=== PATIENT | female | born 1955 | race American Indian/Alaskan Native ===

== ENCOUNTER 2017-08-15 19:48 | Inpatient (IN) | payer MEDICARE ==
--- NOTE | 2017-08-15 21:23 | Emergency Department Report ---
HPI - General Chief Complaint: Weakness Time Seen by Provider: 08/15/17 21:05 - HPI HPI: Room 3 The patient is a 62-year-old female presenting with a chief complaint of altered mental status. The majority of the history is obtained from nursing staff at the longterm as the patient is a very poor historian. Nursing staff reports this patient normally ambulates with a walker because sometimes she is unsteady on her feet. The patient has been instructed to notify nursing staff whenever she wants to go somewhere and so they can assist her with ambulation. Yesterday the patient did not notify nursing and reportedly fell in the bathroom. Nursing states there is no loss of consciousness and the patient denies striking her head. Today the patient fell again while going to the bathroom and she slipped floor. Nursing staff noted that the patient couldn 't hold her food and spilled drinks. Patient had difficulty sitting up and appeared near syncopal. At baseline patient is a and O 4 Location: Mental state Duration: [See above] Quality: Altered Severity: [See above] Modifying factors: [see above] Context: [see above] Mode of transportation: [not driving] ED Past Medical Hx - Past Medical History Previous Medical History?: Yes Hx Hypertension: Yes Hx Congestive Heart Failure: Yes Hx Diabetes: Yes Hx Renal Disease: Yes Hx COPD: Yes Additional medical history: CKD, Glaucoma, acute respiratory failure - Surgical History Past Surgical History?: No - Family History Family history: no significant - Social History Smoking Status: Unknown if ever smoked Substance Use Type: None - Medications Home Medications: Home Medications Medication Instructions Recorded Confirmed Last Taken Type Albuterol Sulfate 108 mcg INHALATION Q6HR PRN 07/26/17 08/15/17 Unknown History DUONEB *Not for PRN Use* 3 ml INHALATION Q6H PRN 07/26/17 08/15/17 Unknown History Dorzolamide HCl/Timolol Maleat 1 drop OU QPM 07/26/17 08/15/17 1 Day Ago History ~07/25/17 Ergocalciferol [Vitamin D2] 50,000 unit PO QWEEK 07/26/17 08/15/17 Unknown History FLUoxetine [PROzac] 20 mg PO QDAY 07/26/17 08/15/17 Unknown History Ferrous Sulfate [Feosol 325 MG tab] 1 tab PO QDAY 07/26/17 08/15/17 Unknown History Metoprolol Xl [Metoprolol 1 tab PO QDAY 07/26/17 08/15/17 Unknown History SUCCINATE ER TAB] Chlorothiazide [Diuril] 500 mg PO Q12H #60 tablet 07/31/17 08/15/17 Unknown Rx Famotidine [Pepcid] 20 mg PO DAILY #30 tablet 07/31/17 08/15/17 Unknown Rx Insulin Glargine [Lantus VIAL] 15 units SUB-Q QHS #30 units 07/31/17 08/15/17 Unknown Rx hydrALAZINE [Apresoline TAB] 50 mg PO TID #90 tablet 07/31/17 08/15/17 Unknown Rx Aspirin [Aspir-Low] 1 tab PO QDAY #30 tablet. 08/05/17 08/15/17 Unknown Rx Ipratropium/Albuterol Sulfate 1 ampul IH TIDRT ampul.severino 08/05/17 08/15/17 Unknown Rx [DUONEB *Not for PRN Use*] Lispro Insulin [Humalog] 0 unit SUB-Q ACHS units 08/05/17 08/15/17 Unknown Rx oxyCODONE /ACETAMINOPHEN [Percocet 1 tab PO Q6H PRN #10 tablet 08/05/17 Unknown Rx 5/325 mg] ED Review of Systems ROS: Stated complaint: AMS Other details as noted in HPI Comment: Unobtainable due to pts medical conditions Physical Exam - Physical Exam Vital Signs: Vital Signs 08/15/17 20:25 Temperature 98.6 F Pulse Rate 61 Respiratory 16 Rate Blood Pressure 143/60 Blood Pressure 143/60 [Right] O2 Sat by Pulse 100 Oximetry Physical Exam: GENERAL: The patient is well-developed well-nourished female lying on stretcher requiring some effort to awaken and answer questions. [] HEENT: Normocephalic. Atraumatic. NECK: Trachea midline CHEST/LUNGS: Clear to auscultation. There is no respiratory distress noted. HEART/CARDIOVASCULAR: Regular. There is no tachycardia. There is no gallop rub or murmur. ABDOMEN: Abdomen is soft, nontender. Patient has normal bowel sounds. There is no abdominal distention. SKIN: There is no rash. There is no edema. There is no diaphoresis. NEURO: The patient is asleep but awakens with tactile and verbal stimuli. The patient is oriented to place and year but requires frequent stimuli to get the patient to answer questions. The patient is not cooperative with neurologic exam. The patient has normal speech MUSCULOSKELETAL: There is no evidence of acute injury. ED Course Vital Signs 08/15/17 20:25 Temperature 98.6 F Pulse Rate 61 Respiratory 16 Rate Blood Pressure 143/60 Blood Pressure 143/60 [Right] O2 Sat by Pulse 100 Oximetry ED Medical Decision Making - Lab Data Result diagrams: 08/15/17 21:28 08/15/17 21:28 Laboratory Tests 08/15/17 08/15/17 08/15/17 21:28 21:28 21:28 WBC 5.0 RBC 3.33 L Hgb 9.0 L Hct 30.2 L MCV 91 MCH 27 L MCHC 30 RDW 18.0 H Plt Count 372 Lymph % (Auto) 22.8 [place] % (Auto) 11.0 H Eos % (Auto) 3.4 Baso % (Auto) 1.1 Lymph # 1.1 L [place] # 0.5 Eos # 0.2 Baso # 0.1 Seg Neutrophils % 61.7 Seg Neutrophils # 3.1 PT 11.8 L INR 0.83 L APTT 25.8 Sodium 144 Potassium 4.6 Chloride 100.6 Carbon Dioxide 36 H Anion Gap 12 BUN 51 H Creatinine 2.6 H Estimated GFR 23 BUN/Creatinine Ratio 20 Glucose 117 H Calcium 8.6 Total Bilirubin < 0.20 AST 11 ALT 18 Alkaline Phosphatase 109 Ammonia Total Creatine Kinase 101 CK-MB (CK-2) 2.3 CK-MB (CK-2) Rel Index 2.2 Troponin T 0.044 H NT-Pro-B Natriuret Pep 5031 H Total Protein 5.4 L Albumin 3.0 L Albumin/Globulin Ratio 1.3 Triglycerides 143 Cholesterol 272 H LDL Cholesterol Direct 167 H HDL Cholesterol 102 H Cholesterol/HDL Ratio 2.66 TSH Free T4 Plasma/Serum Alcohol 08/15/17 08/15/17 08/15/17 21:28 21:37 21:37 WBC RBC Hgb Hct MCV MCH MCHC RDW Plt Count Lymph % (Auto) [place] % (Auto) Eos % (Auto) Baso % (Auto) Lymph # [place] # Eos # Baso # Seg Neutrophils % Seg Neutrophils # PT INR APTT Sodium Potassium Chloride Carbon Dioxide Anion Gap BUN Creatinine Estimated GFR BUN/Creatinine Ratio Glucose Calcium Total Bilirubin AST ALT Alkaline Phosphatase Ammonia 27.0 Total Creatine Kinase CK-MB (CK-2) CK-MB (CK-2) Rel Index Troponin T NT-Pro-B Natriuret Pep Total Protein Albumin Albumin/Globulin Ratio Triglycerides Cholesterol LDL Cholesterol Direct HDL Cholesterol Cholesterol/HDL Ratio TSH 2.910 Free T4 1.09 Plasma/Serum Alcohol < 0.01 - EKG Data -: EKG Interpreted by Me EKG shows normal: sinus rhythm Rate: normal - EKG Data When compared to previous EKG there are: no significant change Interpretation: unchanged when compared t (no significant change when compared to previous EKG dated 07/26/2017) - Radiology Data Radiology results: report reviewed (CT head), image reviewed (CT head) CT head (read by radiologist)-normal study of the brain. Mild left mastoiditis - Medical Decision Making Patient had a myocardial perfusion scan performed last month that was read as low risk - Differential Diagnosis altered mental status, ICH, electrolyte imbalance, Critical care attestation.: If time is entered above; I have spent that time in minutes in the direct care of this critically ill patient, excluding procedure time. ED Disposition Clinical Impression: Altered mental status, Renal insufficiency Disposition: -09 OP ADMIT IP TO THIS HOSP Is pt being admited?: Yes Does the pt Need Aspirin: No (renal insufficiency) Condition: Stable Referrals: CANDIE UGALDE MD [Primary Care Provider] - 3-5 Days Time of Disposition: 23:18 (hospitalist paged (Dr Kavitha Carroll))
[2017-08-15 21:51] LABS: Basophils # (Auto) 0.1 K/mm3 (0.0-0.1); Basophils % (Auto) 1.1 % (0.0-1.8); Eosinophils # (Auto) 0.2 K/mm3 (0.0-0.4); Eosinophils % (Auto) 3.4 % (0.0-4.3); Lymphocytes # (Auto) 1.1 K/mm3 (1.2-5.4); Lymphocytes % (Auto) 22.8 % (13.4-35.0); Mean Corpuscular HGB Conc 30 % (30-34); Mean Corpuscular Hemoglobin 27 pg (28-32); Mean Corpuscular Volume 91 fl (79-97); Monocytes # (Auto) 0.5 K/mm3 (0.0-0.8); Platelet Count 372 K/mm3 (140-440); Red Blood Count 3.33 M/mm3 (3.65-5.03)
[2017-08-15 21:52] LABS: Hematocrit 30.2 % (30.3-42.9)
[2017-08-15 22:00] LABS: INR 0.83 (0.87-1.13)
[2017-08-15 22:01] LABS: Partial Thromboplastin Time 25.8 Sec. (24.2-36.6)
[2017-08-15 22:09] LABS: Creatine Kinase MB 2.3 ng/mL (0.0-4.0)
[2017-08-15 22:13] LABS: Alanine Aminotransferase 18 units/L (7-56); BUN/Creatinine Ratio 20; Blood Urea Nitrogen 51 mg/dL (7-17); Calcium 8.6 mg/dL (8.4-10.2); Hemolysis Index 2
[2017-08-15 22:19] LABS: Free T4 (Free Thyroxine) 1.09 ng/dL (0.76-1.46)
[2017-08-15 22:24] LABS: Chol/HDL Ratio 2.66 %; HDL Cholesterol 102 mg/dL (40-59); LDL Cholesterol,Direct 167 mg/dL (50-130)
[2017-08-15] MEDS ORDERED: PLAVIX PO ONE (23:13)
[2017-08-16 00:11] LABS: Amorphous Crystals,Urine 2+; Bilirubin,Urine NEG (Negative); Blood,Urine NEG (Negative); Color,Urine Yellow (Yellow); Hyaline Casts,Urine 3 /LPF; Mucus,Urine FEW /HPF; Urobilinogen,Urine < 2.0 mg/dL (<2.0)
[2017-08-16 00:15] LABS: Protein,Urine >500 mg/dL (Negative)
[2017-08-16 00:16] LABS: Amphetamine Screen,Urine PRESUMPTIVE NEGATIVE; Benzodiazepines Screen,Urine PRESUMPTIVE NEGATIVE; Cannabinoid Screen,Urine PRESUMPTIVE NEGATIVE; Cocaine Screen,Urine PRESUMPTIVE NEGATIVE; Methadone Screen,Urine PRESUMPTIVE NEGATIVE; Opiate Screen,Urine PRESUMPTIVE NEGATIVE
[2017-08-16] MEDS ORDERED: D50W (25GM) Syringe IV PRN (02:22)
[2017-08-16] MEDS ORDERED: SODIUM CHLORIDE FLUSH SYRINGE 10 ML IV PRN (02:22)
[2017-08-16] MEDS ORDERED: TYLENOL PO PRN (02:22)
[2017-08-16] MEDS ORDERED: DUONEB *Not for PRN Use IH ONE (02:30)
--- NOTE | 2017-08-16 02:30 | History and Physical Report ---
History of Present Illness Date of examination: 08/16/17 History of present illness: 62-year-old male with a history of CHF, COPD, chronic kidney disease, hypertension, diabetes, sleep apnea, coronary artery disease was just discharged from the hospital return today for altered mental status. The patient is unable to give a history, she is lethargic but arousable. ABG was done which shows CO2 of 94, the patient was placed on BiPAP. Review of system is unobtainable PAST MEDICAL HISTORY:CHF, COPD, chronic kidney disease, hypertension, diabetes, sleep apnea, coronary artery disease PAST SURGICAL HISTORY: Unknown SOCIAL HISTORY: Unknown FAMILY HISTORY: Unknown Medications and Allergies Allergies Allergy/AdvReac Type Severity Reaction Status Date / Time No Known Allergies Allergy Verified 07/26/17 09:25 Home Medications Medication Instructions Recorded Confirmed Last Taken Type Albuterol Sulfate 108 mcg INHALATION Q6HR PRN 07/26/17 08/15/17 Unknown History DUONEB *Not for PRN Use* 3 ml INHALATION Q6H PRN 07/26/17 08/15/17 Unknown History Dorzolamide HCl/Timolol Maleat 1 drop OU QPM 07/26/17 08/15/17 1 Day Ago History ~07/25/17 Ergocalciferol [Vitamin D2] 50,000 unit PO QWEEK 07/26/17 08/15/17 Unknown History FLUoxetine [PROzac] 20 mg PO QDAY 07/26/17 08/15/17 Unknown History Ferrous Sulfate [Feosol 325 MG tab] 1 tab PO QDAY 07/26/17 08/15/17 Unknown History Metoprolol Xl [Metoprolol 1 tab PO QDAY 07/26/17 08/15/17 Unknown History SUCCINATE ER TAB] Chlorothiazide [Diuril] 500 mg PO Q12H #60 tablet 07/31/17 08/15/17 Unknown Rx Famotidine [Pepcid] 20 mg PO DAILY #30 tablet 07/31/17 08/15/17 Unknown Rx Insulin Glargine [Lantus VIAL] 15 units SUB-Q QHS #30 units 07/31/17 08/15/17 Unknown Rx hydrALAZINE [Apresoline TAB] 50 mg PO TID #90 tablet 07/31/17 08/15/17 Unknown Rx Aspirin [Aspir-Low] 1 tab PO QDAY #30 tablet.dr 08/05/17 08/15/17 Unknown Rx Ipratropium/Albuterol Sulfate 1 ampul IH TIDRT ampul.severino 08/05/17 08/15/17 Unknown Rx [DUONEB *Not for PRN Use*] Lispro Insulin [Humalog] 0 unit SUB-Q ACHS units 08/05/17 08/15/17 Unknown Rx oxyCODONE /ACETAMINOPHEN [Percocet 1 tab PO Q6H PRN #10 tablet 08/05/17 Unknown Rx 5/325 mg] Exam - Physical Exam Narrative exam: Gen. appearance: Patient lying in bed, no apparent distress on BiPAP HEENT: Normocephalic, atraumatic, pupils equally round and reactive to light, unable to do extraocular movement, and no sclericterus,. No JVD or thyromegaly or nodule,neck supple, no carotid bruit ,mucous membranes moist, unable to examine oral cavity Heart: S1, S2, regular rate and rhythm Lungs: Clear to auscultation bilaterally, breathing comfortable Abdomen: Positive bowel sounds, soft, nondistended, no organomegaly Extremity: No edema, cyanosis, clubbing Skin: No rash, nodules, warm, dry Neuro: Lethargic - Constitutional Vitals: Temp Pulse Resp BP Pulse Ox 98.6 F 63 11 L 162/64 100 08/15/17 20:25 08/16/17 02:01 08/16/17 02:01 08/16/17 02:01 08/16/17 02:01 Results - Labs CBC & Chem 7: 08/15/17 21:28 08/15/17 21:28 Labs: Abnormal lab results 08/15/17 08/15/17 08/15/17 Range/Units 21:28 21:28 21:28 RBC 3.33 L (3.65-5.03) M/mm3 Hgb 9.0 L (10.1-14.3) gm/dl Hct 30.2 L (30.3-42.9) % MCH 27 L (28-32) pg RDW 18.0 H (13.2-15.2) % [place] % (Auto) 11.0 H (0.0-7.3) % Lymph # 1.1 L (1.2-5.4) K/mm3 PT 11.8 L (12.2-14.9) Sec. INR 0.83 L (0.87-1.13) POC ABG pH (7.35-7.45) POC ABG pCO2 (35-45) POC ABG pO2 (80-105) Carbon Dioxide 36 H (22-30) mmol/L BUN 51 H (7-17) mg/dL Creatinine 2.6 H (0.7-1.2) mg/dL Glucose 117 H (65-100) mg/dL Troponin T 0.044 H (0.00-0.029) ng/mL NT-Pro-B Natriuret Pep 5031 H (0-900) pg/mL Total Protein 5.4 L (6.3-8.2) g/dL Albumin 3.0 L (3.9-5) g/dL Cholesterol 272 H (50-199) mg/dL LDL Cholesterol Direct 167 H (50-130) mg/dL HDL Cholesterol 102 H (40-59) mg/dL 08/16/17 08/16/17 Range/Units 00:44 01:55 RBC (3.65-5.03) M/mm3 Hgb (10.1-14.3) gm/dl Hct (30.3-42.9) % MCH (28-32) pg RDW (13.2-15.2) % [place] % (Auto) (0.0-7.3) % Lymph # (1.2-5.4) K/mm3 PT (12.2-14.9) Sec. INR (0.87-1.13) POC ABG pH 7.184 L 7.291 L (7.35-7.45) POC ABG pCO2 94.6 H 70.2 H (35-45) POC ABG pO2 163 H 63 L (80-105) Carbon Dioxide (22-30) mmol/L BUN (7-17) mg/dL Creatinine (0.7-1.2) mg/dL Glucose (65-100) mg/dL Troponin T (0.00-0.029) ng/mL NT-Pro-B Natriuret Pep (0-900) pg/mL Total Protein (6.3-8.2) g/dL Albumin (3.9-5) g/dL Cholesterol (50-199) mg/dL LDL Cholesterol Direct (50-130) mg/dL HDL Cholesterol (40-59) mg/dL - Imaging and Cardiology EKG: image reviewed CT Scan - head: report reviewed Assessment and Plan Assessment Acute respiratory failure, hypercarbic COPD exacerbation CHF, sta chronic kidney disease Hypertension Diabetes sleep apnea Coronary artery disease Plan Admit to medicine Start high-dose steroids, first dose now, nebulizer treatments Repeat ABG, continue BiPAP Consult pulmonary, check fingersticks, oriented enzymes, initiate insulin sliding scale Obtain chest x-ray DVT prophylaxis
[2017-08-16] MEDS: DUONEB *Not for PRN Use IH SCH ×4 (02:44→20:02)
[2017-08-16 04:12] LABS: Creatine Kinase MB 2.6 ng/mL (0.0-4.0)
[2017-08-16] MEDS: HumuLIN R SUB-Q SCH ×4 (07:30→22:13)
[2017-08-16] MEDS: LOVENOX SUB-Q SCH (11:13)
[2017-08-16] MEDS: SODIUM CHLORIDE FLUSH SYRINGE 10 ML IV SCH ×2 (11:14→22:08)
[2017-08-16] MEDS ORDERED: ALBUTEROL SULFATE 108 MCG INHALATION PRN (12:09)
[2017-08-16 12:14] LABS: Creatine Kinase MB 1.6 ng/mL (0.0-4.0)
[2017-08-16] MEDS ORDERED: CHLOROTHIAZIDE 500 MG PO SCH ×2 (12:15→22:00)
[2017-08-16] MEDS ORDERED: PROVENTIL IH PRN (12:30)
[2017-08-16] MEDS: APRESOLINE PO SCH ×2 (17:58→22:06)
--- NOTE | 2017-08-16 19:13 | Progress Note ---
Assessment and Plan Assessment and plan: --Acute hypoxic respiratory failure: Oxygen titrate O2 sats to more than 90%, nebulizers, IV steroids, IV antibiotics BiPAP as needed --COPD exacerbation; Oxygen nebulizers and IV steroids and antibiotics inhalation steroids Evaluation for home oxygen at discharge --Acute on chronic diastolic congestive heart failure Ejection fraction 50-55%, continue anti-failure medications Low sodium diet, closely monitor --Acute on chronic kidney disease stage III Gentle hydration closely monitor renal function and avoid nephrotoxins Nephrology consult --Type 2 diabetes mellitus; uncontrolled Secondary to IV steroids, Accu-Chek sliding scale coverage and ADA diet and insulin Closely monitor blood sugars, adjust insulin dose as needed --Hypertension; moderate control, continue current antihypertensives When necessary medications --DVT prophylaxis; Lovenox Will closely monitor the patient and adjust management as needed Plan of care is reviewed with the patient and her nurse History Interval history: Patient seen and examined medical records reviewed Feels better no new complaints Patient is alert awake oriented 3 Not in acute distress Vital signs reviewed Hospitalist Physical - Constitutional Vitals: Temp Pulse Resp BP Pulse Ox 97.9 F 67 20 144/46 100 08/16/17 08:54 08/16/17 17:58 08/16/17 14:30 08/16/17 17:58 08/16/17 12:20 General appearance: Present: no acute distress, well-nourished - EENT Eyes: Present: PERRL, EOM intact - Neck Neck: Present: supple, normal ROM - Respiratory Respiratory effort: normal Respiratory: bilateral: diminished, wheezing, negative: rales, rhonchi - Cardiovascular Rhythm: regular Heart Sounds: Present: S1 & S2 - Extremities Extremities: no ischemia, No edema - Abdominal General gastrointestinal: soft, non-tender, non-distended, normal bowel sounds - Integumentary Integumentary: Present: clear, warm - Psychiatric Psychiatric: appropriate mood/affect, cooperative - Neurologic Neurologic: CNII-XII intact, moves all extremities Results - Labs CBC & Chem 7: 08/17/17 15:02 08/17/17 15:02 Labs: Laboratory Last Values WBC 5.0 K/mm3 (4.5-11.0) 08/15/17 21:28 RBC 3.33 M/mm3 (3.65-5.03) L 08/15/17 21:28 Hgb 9.0 gm/dl (10.1-14.3) L 08/15/17 21:28 Hct 30.2 % (30.3-42.9) L 08/15/17 21: MCV 91 fl (79-97) 08/15/17 21:28 MCH 27 pg (28-32) L 08/15/17 21: MCHC 30 % (30-34) 08/15/17 21:28 RDW 18.0 % (13.2-15.2) H 08/15/17 21:28 Plt Count 372 K/mm3 (140-440) 08/15/17 21:28 Lymph % (Auto) 22.8 % (13.4-35.0) 08/15/17 21:28 [place] % (Auto) 11.0 % (0.0-7.3) H 08/15/17 21: Eos % (Auto) 3.4 % (0.0-4.3) 08/15/17 21: Baso % (Auto) 1.1 % (0.0-1.8) 08/15/17 21:28 Lymph # 1.1 K/mm3 (1.2-5.4) L 08/15/17 21:28 [place] # 0.5 K/mm3 (0.0-0.8) 08/15/17 21:28 Eos # 0.2 K/mm3 (0.0-0.4) 08/15/17 21:28 Baso # 0.1 K/mm3 (0.0-0.1) 08/15/17 21:28 Seg Neutrophils % 61.7 % (40.0-70.0) 08/15/17 21: Seg Neutrophils # 3.1 K/mm3 (1.8-7.7) 08/15/17 21:28 PT 11.8 Sec. (12.2-14.9) L 08/15/17 21: INR 0.83 (0.87-1.13) L 08/15/17 21:28 APTT 25.8 Sec. (24.2-36.6) 08/15/17 21:28 POC ABG pH 7.291 (7.35-7.45) L 08/16/17 08:47 POC ABG pCO2 71.6 (35-45) H 08/16/17 08:47 POC ABG pO2 235 (80-105) H 08/16/17 08:47 POC ABG HCO3 34.4 08/16/17 08:47 POC ABG Total CO2 37 08/16/17 08:47 POC ABG O2 Sat 100 08/16/17 08:47 POC ABG Base Excess 8 08/16/17 08:47 FiO2 40 % 08/16/17 08:47 Sodium 144 mmol/L (137-145) 08/15/17 21:28 Potassium 4.6 mmol/L (3.6-5.0) 08/15/17 21:28 Chloride 100.6 mmol/L (98-107) 08/15/17 21:28 Carbon Dioxide 36 mmol/L (22-30) H 08/15/17 21:28 Anion Gap 12 mmol/L 08/15/17 21:28 BUN 51 mg/dL (7-17) H 08/15/17 21:28 Creatinine 2.6 mg/dL (0.7-1.2) H 08/15/17 21:28 Estimated GFR 23 ml/min 08/15/17 21:28 BUN/Creatinine Ratio 20 % 08/15/17 21:28 Glucose 117 mg/dL (65-100) H 08/15/17 21:28 POC Glucose 249 (70-105) H 08/16/17 16:56 Calcium 8.6 mg/dL (8.4-10.2) 08/15/17 21:28 Total Bilirubin < 0.20 mg/dL (0.1-1.2) 08/15/17 21:28 AST 11 units/L (5-40) 08/15/17 21:28 ALT 18 units/L (7-56) 08/15/17 21:28 Alkaline Phosphatase 109 units/L (35-129) 08/15/17 21:28 Ammonia 27.0 umol/L (25-60) 08/15/17 21:28 Total Creatine Kinase 59 units/L (30-135) 08/16/17 11:01 CK-MB (CK-2) 1.6 ng/mL (0.0-4.0) 08/16/17 11:01 CK-MB (CK-2) Rel Index 2.7 (0-4) 08/16/17 11:01 Troponin T 0.032 ng/mL (0.00-0.029) H D 08/16/17 11:01 NT-Pro-B Natriuret Pep 5031 pg/mL (0-900) H 08/15/17 21:28 Total Protein 5.4 g/dL (6.3-8.2) L 08/15/17 21:28 Albumin 3.0 g/dL (3.9-5) L 08/15/17 21: Albumin/Globulin Ratio 1.3 % 08/15/17 21:28 Triglycerides 143 mg/dL (2-149) 08/15/17 21:28 Cholesterol 272 mg/dL (50-199) H 08/15/17 21: LDL Cholesterol Direct 167 mg/dL (50-130) H 08/15/17 21: HDL Cholesterol 102 mg/dL (40-59) H 08/15/17 21: Cholesterol/HDL Ratio 2.66 % 08/15/17 21:28 TSH 2.910 mlU/mL (0.270-4.200) 08/15/17 21:37 Free T4 1.09 ng/dL (0.76-1.46) 08/15/17 21:37 Urine Color Yellow (Yellow) 08/15/17 23:44 Urine Turbidity Clear (Clear) 08/15/17 23:44 Urine pH 6.0 (5.0-7.0) 08/15/17 23:44 Ur Specific [place] 1.011 (1.003-1.030) 08/15/17 23:44 Urine Protein >500 mg/dL (Negative) 08/15/17 23:44 Urine Glucose (UA) >=500 mg/dL (Negative) 08/15/17 23:44 Urine Ketones Neg mg/dL (Negative) 08/15/17 23:44 Urine Blood Neg (Negative) 08/15/17 23:44 Urine Nitrite Neg (Negative) 08/15/17 23:44 Urine Bilirubin Neg (Negative) 08/15/17 23:44 Urine Urobilinogen < 2.0 mg/dL (<2.0) 08/15/17 23:44 Ur Leukocyte Esterase Neg (Negative) 08/15/17 23:44 Urine WBC (Auto) 2.0 /HPF (0.0-6.0) 08/15/17 23:44 Urine RBC (Auto) 1.0 /HPF (0.0-6.0) 08/15/17 23:44 U Epithel Cells (Auto) < 1.0 /HPF (0-13.0) 08/15/17 23:44 Amorphous Crystals 2+ 08/15/17 23:44 Hyaline Casts 3 /LPF 08/15/17 23:44 Urine Mucus Few /HPF 08/15/17 23:44 Urine Opiates Screen Presumptive negative 08/15/17 23:44 Urine Methadone Screen Presumptive negative 08/15/17 23:44 Ur Barbiturates Screen Presumptive negative 08/15/17 23:44 Ur Phencyclidine Scrn Presumptive negative 08/15/17 23:44 Ur Amphetamines Screen Presumptive negative 08/15/17 23:44 U Benzodiazepines Scrn Presumptive negative 08/15/17 23:44 Urine Cocaine Screen Presumptive negative 08/15/17 23:44 U Marijuana (THC) Screen Presumptive negative 08/15/17 23:44 Drugs of Abuse Note Disclamer 08/15/17 23:44 Plasma/Serum Alcohol < 0.01 % (0-0.07) 08/15/17 21:37
[2017-08-16] MEDS ORDERED: LANTUS SUB-Q SCH (22:00)
[2017-08-17] MEDS: DUONEB *Not for PRN Use IH SCH ×3 (07:55→21:00)
--- NOTE | 2017-08-17 10:57 | Progress Note ---
Assessment and Plan Assessment and plan: --Acute hypoxic respiratory failure: Symptoms slightly improved Oxygen titrate O2 sats to more than 90%, nebulizers, IV steroids, IV antibiotics BiPAP as needed --COPD exacerbation; Oxygen nebulizers and IV steroids and antibiotics inhalation steroids Evaluation for home oxygen at discharge --Acute on chronic diastolic congestive heart failure Ejection fraction 50-55%, continue anti-failure medications Low sodium diet, closely monitor --Acute on chronic kidney disease stage III Gentle hydration closely monitor renal function and avoid nephrotoxins Nephrology consult --Type 2 diabetes mellitus; uncontrolled Secondary to IV steroids, Accu-Chek sliding scale coverage and ADA diet and insulin Closely monitor blood sugars, adjust insulin dose as needed --Hypertension; moderate control, continue current antihypertensives When necessary medications --DVT prophylaxis; Lovenox Will closely monitor the patient and adjust management as needed Plan of care is reviewed with the patient and her nurse History Interval history: Patient seen and examined medical records reviewed Patient feels slightly better no new complaints Blood sugars are uncontrolled secondary to IV steroids Vital signs reviewed Hospitalist Physical - Constitutional Vitals: Temp Pulse Resp BP Pulse Ox 97.4 F L 65 20 186/73 99 08/17/17 08:50 08/17/17 08:50 08/17/17 08:50 08/17/17 08:50 08/17/17 10:00 General appearance: Present: no acute distress, well-nourished - EENT Eyes: Present: PERRL, EOM intact - Neck Neck: Present: supple, normal ROM - Respiratory Respiratory effort: normal Respiratory: bilateral: diminished, wheezing, negative: rales, rhonchi - Cardiovascular Rhythm: regular Heart Sounds: Present: S1 & S2 - Extremities Extremities: no ischemia, No edema - Abdominal General gastrointestinal: soft, non-tender, non-distended, normal bowel sounds - Integumentary Integumentary: Present: clear, warm - Psychiatric Psychiatric: appropriate mood/affect, cooperative - Neurologic Neurologic: CNII-XII intact, moves all extremities Results - Labs CBC & Chem 7: 08/17/17 15:02 08/17/17 15:02 Labs: Laboratory Last Values WBC 5.0 K/mm3 (4.5-11.0) 08/15/17 21:28 RBC 3.33 M/mm3 (3.65-5.03) L 08/15/17 21:28 Hgb 9.0 gm/dl (10.1-14.3) L 08/15/17 21: Hct 30.2 % (30.3-42.9) L 08/15/17 21: MCV 91 fl (79-97) 08/15/17 21: MCH 27 pg (28-32) L 08/15/17 21: MCHC 30 % (30-34) 08/15/17 21: RDW 18.0 % (13.2-15.2) H 08/15/17 21: Plt Count 372 K/mm3 (140-440) 08/15/17 21: Lymph % (Auto) 22.8 % (13.4-35.0) 08/15/17: [place] % (Auto) 11.0 % (0.0-7.3) H 08/15/17 21: Eos % (Auto) 3.4 % (0.0-4.3) 08/15/17: Baso % (Auto) 1.1 % (0.0-1.8) 08/15/17: Lymph # 1.1 K/mm3 (1.2-5.4) L 08/15/17 21: [place] # 0.5 K/mm3 (0.0-0.8) 08/15/17 21: Eos # 0.2 K/mm3 (0.0-0.4) 08/15/17 21: Baso # 0.1 K/mm3 (0.0-0.1) 08/15/17 21: Seg Neutrophils % 61.7 % (40.0-70.0) 08/15/17 21: Seg Neutrophils # 3.1 K/mm3 (1.8-7.7) 08/15/17 21: PT 11.8 Sec. (12.2-14.9) L 08/15/17: INR 0.83 (0.87-1.13) L 08/15/17 21: APTT 25.8 Sec. (24.2-36.6) 08/15/17 21: POC ABG pH 7.291 (7.35-7.45) L 08/16/17 08:47 POC ABG pCO2 71.6 (35-45) H 08/16/17 08:47 POC ABG pO2 235 (80-105) H 08/16/17 08:47 POC ABG HCO3 34.4 08/16/17 08:47 POC ABG Total CO2 37 08/16/17 08:47 POC ABG O2 Sat 100 08/16/17 08:47 POC ABG Base Excess 8 08/16/17 08:47 FiO2 40 % 08/16/17 08:47 Sodium 144 mmol/L (137-145) 08/15/17 21:28 Potassium 4.6 mmol/L (3.6-5.0) 08/15/17 21:28 Chloride 100.6 mmol/L (98-107) 08/15/17 21:28 Carbon Dioxide 36 mmol/L (22-30) H 08/15/17 21:28 Anion Gap 12 mmol/L 08/15/17 21:28 BUN 51 mg/dL (7-17) H 08/15/17 21:28 Creatinine 2.6 mg/dL (0.7-1.2) H 08/15/17 21:28 Estimated GFR 23 ml/min 08/15/17 21:28 BUN/Creatinine Ratio 20 % 08/15/17 21:28 Glucose 117 mg/dL (65-100) H 08/15/17 21:28 POC Glucose 328 (70-105) H 08/17/17 06:32 Calcium 8.6 mg/dL (8.4-10.2) 08/15/17 21:28 Total Bilirubin < 0.20 mg/dL (0.1-1.2) 08/15/17 21:28 AST 11 units/L (5-40) 08/15/17 21:28 ALT 18 units/L (7-56) 08/15/17 21:28 Alkaline Phosphatase 109 units/L (35-129) 08/15/17 21:28 Ammonia 27.0 umol/L (25-60) 08/15/17 21:28 Total Creatine Kinase 59 units/L (30-135) 08/16/17 11:01 CK-MB (CK-2) 1.6 ng/mL (0.0-4.0) 08/16/17 11:01 CK-MB (CK-2) Rel Index 2.7 (0-4) 08/16/17 11:01 Troponin T 0.032 ng/mL (0.00-0.029) H D 08/16/17 11:01 NT-Pro-B Natriuret Pep 5031 pg/mL (0-900) H 08/15/17 21:28 Total Protein 5.4 g/dL (6.3-8.2) L 08/15/17 21:28 Albumin 3.0 g/dL (3.9-5) L 08/15/17 21: Albumin/Globulin Ratio 1.3 % 08/15/17 21:28 Triglycerides 143 mg/dL (2-149) 08/15/17 21: Cholesterol 272 mg/dL (50-199) H 08/15/17 21: LDL Cholesterol Direct 167 mg/dL (50-130) H 08/15/17 21: HDL Cholesterol 102 mg/dL (40-59) H 08/15/17 21: Cholesterol/HDL Ratio 2.66 % 08/15/17 21:28 TSH 2.910 mlU/mL (0.270-4.200) 08/15/17 21:37 Free T4 1.09 ng/dL (0.76-1.46) 08/15/17 21:37 Urine Color Yellow (Yellow) 08/15/17 23:44 Urine Turbidity Clear (Clear) 08/15/17 23:44 Urine pH 6.0 (5.0-7.0) 08/15/17 23:44 Ur Specific [place] 1.011 (1.003-1.030) 08/15/17 23:44 Urine Protein >500 mg/dL (Negative) 08/15/17 23:44 Urine Glucose (UA) >=500 mg/dL (Negative) 08/15/17 23:44 Urine Ketones Neg mg/dL (Negative) 08/15/17 23:44 Urine Blood Neg (Negative) 08/15/17 23:44 Urine Nitrite Neg (Negative) 08/15/17 23:44 Urine Bilirubin Neg (Negative) 08/15/17 23:44 Urine Urobilinogen < 2.0 mg/dL (<2.0) 08/15/17 23:44 Ur Leukocyte Esterase Neg (Negative) 08/15/17 23:44 Urine WBC (Auto) 2.0 /HPF (0.0-6.0) 08/15/17 23:44 Urine RBC (Auto) 1.0 /HPF (0.0-6.0) 08/15/17 23:44 U Epithel Cells (Auto) < 1.0 /HPF (0-13.0) 08/15/17 23:44 Amorphous Crystals 2+ 08/15/17 23:44 Hyaline Casts 3 /LPF 08/15/17 23:44 Urine Mucus Few /HPF 08/15/17 23:44 Urine Opiates Screen Presumptive negative 08/15/17 23:44 Urine Methadone Screen Presumptive negative 08/15/17 23:44 Ur Barbiturates Screen Presumptive negative 08/15/17 23:44 Ur Phencyclidine Scrn Presumptive negative 08/15/17 23:44 Ur Amphetamines Screen Presumptive negative 08/15/17 23:44 U Benzodiazepines Scrn Presumptive negative 08/15/17 23:44 Urine Cocaine Screen Presumptive negative 08/15/17 23:44 U Marijuana (THC) Screen Presumptive negative 08/15/17 23:44 Drugs of Abuse Note Disclamer 08/15/17 23:44 Plasma/Serum Alcohol < 0.01 % (0-0.07) 08/15/17 21:37
[2017-08-17] MEDS: PROzac PO SCH (11:18)
[2017-08-17] MEDS: LOVENOX SUB-Q SCH (11:18)
[2017-08-17] MEDS: HALFPRIN EC PO SCH (11:18)
[2017-08-17] MEDS: SODIUM CHLORIDE FLUSH SYRINGE 10 ML IV SCH ×2 (11:19→22:15)
[2017-08-17] MEDS: HumuLIN R SUB-Q SCH ×4 (11:19→22:15)
[2017-08-17] MEDS: TOPROL XL PO SCH (11:20)
[2017-08-17] MEDS: APRESOLINE PO SCH ×2 (11:23→22:13)
[2017-08-17] MEDS: HumaLOG SUB-Q SCH ×2 (11:43→17:26)
[2017-08-17 15:26] LABS: Basophils % (Auto) 0.2 % (0.0-1.8); Hematocrit 30.1 % (30.3-42.9); Hemoglobin 9.1 gm/dl (10.1-14.3); Lymphocytes # (Auto) 0.4 K/mm3 (1.2-5.4); Lymphocytes % (Auto) 9.6 % (13.4-35.0); Mean Corpuscular HGB Conc 30 % (30-34); Mean Corpuscular Hemoglobin 27 pg (28-32); Mean Corpuscular Volume 89 fl (79-97); Monocytes # (Auto) 0.2 K/mm3 (0.0-0.8); Monocytes % (Auto) 5.7 % (0.0-7.3); Platelet Count 420 K/mm3 (140-440); Red Blood Count 3.38 M/mm3 (3.65-5.03); Red Cell Distribution Width 17.4 % (13.2-15.2)
[2017-08-17 15:42] LABS: Calcium 8.4 mg/dL (8.4-10.2)
--- NOTE | 2017-08-17 18:11 | Event Note ---
Date: 08/17/17 Patient's blood sugars are uncontrolled, due to high-dose IV Solu-Medrol Continue Accu-Chek sliding scale coverage, insulin dose increased, Solu-Medrol dose tapered Closely monitor the patient and the blood sugars
[2017-08-17] MEDS: LANTUS SUB-Q SCH (22:14)
[2017-08-18] MEDS: HumuLIN R SUB-Q SCH ×4 (07:30→22:08)
[2017-08-18] MEDS: DUONEB *Not for PRN Use IH SCH ×3 (08:12→20:34)
[2017-08-18] MEDS: APRESOLINE PO SCH ×3 (09:08→22:08)
[2017-08-18] MEDS: TOPROL XL PO SCH (09:09)
[2017-08-18] MEDS: LOVENOX SUB-Q SCH (09:09)
[2017-08-18] MEDS: HALFPRIN EC PO SCH (09:09)
[2017-08-18] MEDS: PROzac PO SCH (09:10)
[2017-08-18] MEDS: SODIUM CHLORIDE FLUSH SYRINGE 10 ML IV SCH ×2 (09:10→22:09)
[2017-08-18 09:28] LABS: Hematocrit 28.1 % (30.3-42.9); Mean Corpuscular HGB Conc 32 % (30-34); Mean Corpuscular Hemoglobin 28 pg (28-32); Mean Corpuscular Volume 87 fl (79-97); Platelet Count 404 K/mm3 (140-440); Red Blood Count 3.23 M/mm3 (3.65-5.03); Red Cell Distribution Width 17.5 % (13.2-15.2)
[2017-08-18 09:36] LABS: Calcium 8.3 mg/dL (8.4-10.2)
--- NOTE | 2017-08-18 10:42 | Progress Note ---
Assessment and Plan Assessment and plan: --Acute on chronic kidney disease stage III Worsening renal function Gentle hydration Avoid nephrotoxins nephrology evaluation --Acute hypoxic respiratory failure: Symptoms slightly improved Oxygen titrate O2 sats to more than 90%, nebulizers, IV steroids, IV antibiotics BiPAP as needed --COPD exacerbation; Oxygen nebulizers and IV steroids and antibiotics inhalation steroids Evaluation for home oxygen at discharge --Acute on chronic diastolic congestive heart failure Ejection fraction 50-55%, continue anti-failure medications Low sodium diet, closely monitor --Type 2 diabetes mellitus; uncontrolled Secondary to IV steroids, Accu-Chek sliding scale coverage and ADA diet and insulin Closely monitor blood sugars, adjust insulin dose as needed --Hypertension; moderate control, continue current antihypertensives When necessary medications --DVT prophylaxis; Lovenox Discharge planning; will decrease it to [facility] long-term when medically stable Plan of care reviewed with the patient and her nurse Also discussed with case management History Interval history: Patient seen and examined medical records reviewed She is slightly better no new complaints Worsening renal function No new events reported Vital signs reviewed Hospitalist Physical - Constitutional Vitals: Temp Pulse Resp BP Pulse Ox 98.0 F 65 18 147/60 99 08/18/17 08:01 08/18/17 09:16 08/18/17 08:22 08/18/17 09:09 08/18/17 08:12 General appearance: Present: no acute distress, well-nourished - EENT Eyes: Present: PERRL, EOM intact - Neck Neck: Present: supple, normal ROM - Respiratory Respiratory effort: normal Respiratory: bilateral: diminished, negative: rales, rhonchi, wheezing - Cardiovascular Rhythm: regular Heart Sounds: Present: S1 & S2 - Extremities Extremities: no ischemia, No edema - Abdominal General gastrointestinal: soft, non-tender, non-distended, normal bowel sounds - Integumentary Integumentary: Present: clear, warm - Psychiatric Psychiatric: appropriate mood/affect, cooperative - Neurologic Neurologic: CNII-XII intact, moves all extremities Results - Labs CBC & Chem 7: 08/18/17 09:09 08/18/17 09:09 Labs: Laboratory Last Values WBC 6.7 K/mm3 (4.5-11.0) 08/18/17 09:09 RBC 3.23 M/mm3 (3.65-5.03) L 08/18/17 09:09 Hgb 9.0 gm/dl (10.1-14.3) L 08/18/17 09:09 Hct 28.1 % (30.3-42.9) L 08/18/17 09:09 MCV 87 fl (79-97) 08/18/17 09:09 MCH 28 pg (28-32) 08/18/17 09:09 MCHC 32 % (30-34) 08/18/17 09:09 RDW 17.5 % (13.2-15.2) H 08/18/17 09:09 Plt Count 404 K/mm3 (140-440) 08/18/17 09:09 Lymph % (Auto) 9.6 % (13.4-35.0) L 08/17/17 15:02 [place] % (Auto) 5.7 % (0.0-7.3) 08/17/17 15:02 Eos % (Auto) 0.0 % (0.0-4.3) 08/17/17 15:02 Baso % (Auto) 0.2 % (0.0-1.8) 08/17/17 15:02 Lymph # 0.4 K/mm3 (1.2-5.4) L 08/17/17 15:02 [place] # 0.2 K/mm3 (0.0-0.8) 08/17/17 15:02 Eos # 0.0 K/mm3 (0.0-0.4) 08/17/17 15:02 Baso # 0.0 K/mm3 (0.0-0.1) 08/17/17 15:02 Seg Neutrophils % [place] 08/18/17 09:09 Seg Neutrophils # 3.3 K/mm3 (1.8-7.7) 08/17/17 15:02 PT 11.8 Sec. (12.2-14.9) L 08/15/17 21:28 INR 0.83 (0.87-1.13) L 08/15/17 21:28 APTT 25.8 Sec. (24.2-36.6) 08/15/17 21:28 POC ABG pH 7.291 (7.35-7.45) L 08/16/17 08:47 POC ABG pCO2 71.6 (35-45) H 08/16/17 08:47 POC ABG pO2 235 (80-105) H 08/16/17 08:47 POC ABG HCO3 34.4 08/16/17 08:47 POC ABG Total CO2 37 08/16/17 08:47 POC ABG O2 Sat 100 08/16/17 08:47 POC ABG Base Excess 8 08/16/17 08:47 FiO2 40 % 08/16/17 08:47 Sodium 142 mmol/L (137-145) 08/18/17 09:09 Potassium 5.2 mmol/L (3.6-5.0) H 08/18/17 09:09 Chloride 100.1 mmol/L (98-107) 08/18/17 09:09 Carbon Dioxide 32 mmol/L (22-30) H 08/18/17 09:09 Anion Gap 15 mmol/L 08/18/17 09:09 BUN 69 mg/dL (7-17) H 08/18/17 09:09 Creatinine 3.2 mg/dL (0.7-1.2) H 08/18/17 09:09 Estimated GFR 18 ml/min 08/18/17 09:09 BUN/Creatinine Ratio 22 % 08/18/17 09:09 Glucose 166 mg/dL (65-100) H 08/18/17 09:09 POC Glucose 67 (70-105) L 08/18/17 06:55 Calcium 8.3 mg/dL (8.4-10.2) L 08/18/17 09:09 Total Bilirubin < 0.20 mg/dL (0.1-1.2) 08/15/17 21:28 AST 11 units/L (5-40) 08/15/17 21:28 ALT 18 units/L (7-56) 08/15/17 21:28 Alkaline Phosphatase 109 units/L (35-129) 08/15/17 21:28 Ammonia 27.0 umol/L (25-60) 08/15/17 21:28 Total Creatine Kinase 59 units/L (30-135) 08/16/17 11:01 CK-MB (CK-2) 1.6 ng/mL (0.0-4.0) 08/16/17 11:01 CK-MB (CK-2) Rel Index 2.7 (0-4) 08/16/17 11:01 Troponin T 0.032 ng/mL (0.00-0.029) H D 08/16/17 11:01 NT-Pro-B Natriuret Pep 5031 pg/mL (0-900) H 08/15/17 21:28 Total Protein 5.4 g/dL (6.3-8.2) L 08/15/17 21:28 Albumin 3.0 g/dL (3.9-5) L 08/15/17 21:28 Albumin/Globulin Ratio 1.3 % 08/15/17 21:28 Triglycerides 143 mg/dL (2-149) 08/15/17 21:28 Cholesterol 272 mg/dL (50-199) H 08/15/17 21:28 LDL Cholesterol Direct 167 mg/dL (50-130) H 08/15/17 21:28 HDL Cholesterol 102 mg/dL (40-59) H 08/15/17 21:28 Cholesterol/HDL Ratio 2.66 % 08/15/17 21:28 TSH 2.910 mlU/mL (0.270-4.200) 08/15/17 21:37 Free T4 1.09 ng/dL (0.76-1.46) 08/15/17 21:37 Urine Color Yellow (Yellow) 08/15/17 23:44 Urine Turbidity Clear (Clear) 08/15/17 23:44 Urine pH 6.0 (5.0-7.0) 08/15/17 23:44 Ur Specific [place] 1.011 (1.003-1.030) 08/15/17 23:44 Urine Protein >500 mg/dL (Negative) 08/15/17 23:44 Urine Glucose (UA) >=500 mg/dL (Negative) 08/15/17 23:44 Urine Ketones Neg mg/dL (Negative) 08/15/17 23:44 Urine Blood Neg (Negative) 08/15/17 23:44 Urine Nitrite Neg (Negative) 08/15/17 23:44 Urine Bilirubin Neg (Negative) 08/15/17 23:44 Urine Urobilinogen < 2.0 mg/dL (<2.0) 08/15/17 23:44 Ur Leukocyte Esterase Neg (Negative) 08/15/17 23:44 Urine WBC (Auto) 2.0 /HPF (0.0-6.0) 08/15/17 23:44 Urine RBC (Auto) 1.0 /HPF (0.0-6.0) 08/15/17 23:44 U Epithel Cells (Auto) < 1.0 /HPF (0-13.0) 08/15/17 23:44 Amorphous Crystals 2+ 08/15/17 23:44 Hyaline Casts 3 /LPF 08/15/17 23:44 Urine Mucus Few /HPF 08/15/17 23:44 Urine Opiates Screen Presumptive negative 08/15/17 23:44 Urine Methadone Screen Presumptive negative 08/15/17 23:44 Ur Barbiturates Screen Presumptive negative 08/15/17 23:44 Ur Phencyclidine Scrn Presumptive negative 08/15/17 23:44 Ur Amphetamines Screen Presumptive negative 08/15/17 23:44 U Benzodiazepines Scrn Presumptive negative 08/15/17 23:44 Urine Cocaine Screen Presumptive negative 08/15/17 23:44 U Marijuana (THC) Screen Presumptive negative 08/15/17 23:44 Drugs of Abuse Note Disclamer 08/15/17 23:44 Plasma/Serum Alcohol < 0.01 % (0-0.07) 08/15/17 21:37
[2017-08-18 11:05] LABS: Basophilic Stippling Rare; Basophils % (Manual) 0 % (0.0-1.8); Eosinophils % (Manual) 0 % (0.0-4.3); Monocytes % (Manual) 0 % (0.0-7.3); Platelet Estimate Consistent w Auto; Total Cells Counted 100
--- NOTE | 2017-08-18 14:25 | Cat Scan Report ---
FINAL REPORT PROCEDURE: CT head without contrast. TECHNIQUE: Computerized tomography of the head was performed without contrast material. HISTORY: Altered mental status. COMPARISON: No prior studies are available for comparison. FINDINGS: The ventricles are normal in size. The santos matter and white matter appear normal. There are no mass lesions. There is no intracranial hemorrhage. The calvarium appears intact. There is a small amount of fluid in a few of the left mastoid air cells. The paranasal sinuses are clear. IMPRESSION: Normal study of the brain. Mild left mastoiditis.
--- NOTE | 2017-08-18 14:26 | XRay Report ---
FINAL REPORT EXAM: XR CHEST 1V AP HISTORY: AMS. TECHNIQUE: A single frontal portable radiograph of the chest was obtained. No prior studies are available for comparison. FINDINGS: The exam is limited due to low lung volumes, with diffuse accentuation of pulmonary vasculature. The cardiac silhouette and mediastinum are within normal limits. There are patchy areas consolidation at both lung bases, left greater than right, representing atelectasis and/or infiltrate. There is no pneumothorax. There is a very slight thoracic levoscoliosis. Mild spondylotic changes are seen in the spine. IMPRESSION: Low lung volumes. Bibasilar patchy consolidation, representing atelectasis and/or infiltrates.
[2017-08-18] MEDS ORDERED: VITAMIN D2 PO SCH (18:00)
[2017-08-18] MEDS: LANTUS SUB-Q SCH (22:07)
[2017-08-18] MEDS: ZOFRAN IV PRN (22:11)
[2017-08-19] MEDS: DUONEB *Not for PRN Use IH SCH ×3 (07:54→20:53)
[2017-08-19] MEDS: APRESOLINE PO SCH ×5 (08:48→22:36)
[2017-08-19] MEDS: HumuLIN R SUB-Q SCH ×4 (08:48→22:31)
[2017-08-19 08:55] LABS: Calcium 8.3 mg/dL (8.4-10.2)
--- NOTE | 2017-08-19 09:37 | Progress Note ---
Assessment and Plan Assessment and plan: --Acute on chronic kidney disease stage III Worsening renal function Gentle hydration Avoid nephrotoxins nephrology evaluation --Acute hypoxic respiratory failure: Symptoms slightly improved Oxygen titrate O2 sats to more than 90%, nebulizers, IV steroids, IV antibiotics BiPAP as needed --COPD exacerbation; Oxygen nebulizers and IV steroids and antibiotics inhalation steroids Evaluation for home oxygen at discharge --Acute on chronic diastolic congestive heart failure Ejection fraction 50-55%, continue anti-failure medications Low sodium diet, closely monitor --Type 2 diabetes mellitus; uncontrolled Secondary to IV steroids, Accu-Chek sliding scale coverage and ADA diet and insulin Closely monitor blood sugars, adjust insulin dose as needed --Hypertension; moderate control, continue current antihypertensives When necessary medications --DVT prophylaxis; Lovenox Discharge planning; possible discharge to skilled nursing when medically stable Plan of care reviewed with the patient and her nurse Also discussed with case management History Interval history: Patient seen and examined medical records reviewed No new events reported by the nursing Patient feels better no new complaints Worsening renal function Vital signs reviewed Hospitalist Physical - Constitutional Vitals: Temp Pulse Resp BP Pulse Ox 97.8 F 60 18 157/69 20 L 08/19/17 08:32 08/19/17 08:48 08/19/17 08:07 08/19/17 08:48 08/19/17 08:32 General appearance: Present: no acute distress, well-nourished, obese - EENT Eyes: Present: PERRL, EOM intact - Neck Neck: Present: supple, normal ROM - Respiratory Respiratory effort: normal Respiratory: bilateral: diminished, negative: rales, rhonchi, wheezing - Cardiovascular Rhythm: regular Heart Sounds: Present: S1 & S2 - Extremities Extremities: no ischemia, No edema - Abdominal General gastrointestinal: soft, non-tender, non-distended, normal bowel sounds - Integumentary Integumentary: Present: clear, warm - Psychiatric Psychiatric: appropriate mood/affect, cooperative - Neurologic Neurologic: CNII-XII intact, moves all extremities Results - Labs CBC & Chem 7: 08/18/17 09:09 08/19/17 08:02 Labs: Laboratory Last Values WBC 6.7 K/mm3 (4.5-11.0) 08/18/17 09:09 RBC 3.23 M/mm3 (3.65-5.03) L 08/18/17 09:09 Hgb 9.0 gm/dl (10.1-14.3) L 08/18/17 09:09 Hct 28.1 % (30.3-42.9) L 08/18/17 09:09 MCV 87 fl (79-97) 08/18/17 09:09 MCH 28 pg (28-32) 08/18/17 09:09 MCHC 32 % (30-34) 08/18/17 09:09 RDW 17.5 % (13.2-15.2) H 08/18/17 09:09 Plt Count 404 K/mm3 (140-440) 08/18/17 09:09 Lymph % (Auto) 9.6 % (13.4-35.0) L 08/17/17 15:02 [place] % (Auto) 5.7 % (0.0-7.3) 08/17/17 15:02 Eos % (Auto) 0.0 % (0.0-4.3) 08/17/17 15:02 Baso % (Auto) 0.2 % (0.0-1.8) 08/17/17 15:02 Lymph # 0.4 K/mm3 (1.2-5.4) L 08/17/17 15:02 [place] # 0.2 K/mm3 (0.0-0.8) 08/17/17 15:02 Eos # 0.0 K/mm3 (0.0-0.4) 08/17/17 15:02 Baso # 0.0 K/mm3 (0.0-0.1) 08/17/17 15:02 Add Manual Diff Complete 08/18/17 09:09 Total Counted 100 08/18/17 09:09 Seg Neutrophils % Full Roll Inspector 08/18/17 09:09 Seg Neuts % (Manual) 95.0 % (40.0-70.0) H 08/18/17 09:09 Band Neutrophils % 0 % 08/18/17 09:09 Lymphocytes % (Manual) 5.0 % (13.4-35.0) L 08/18/17 09:09 Reactive Lymphs % (Man) 0 % 08/18/17 09:09 Monocytes % (Manual) 0 % (0.0-7.3) 08/18/17 09:09 Eosinophils % (Manual) 0 % (0.0-4.3) 08/18/17 09:09 Basophils % (Manual) 0 % (0.0-1.8) 08/18/17 09:09 Metamyelocytes % 0 % 08/18/17 09:09 Myelocytes % 0 % 08/18/17 09:09 Promyelocytes % 0 % 08/18/17 09:09 Blast Cells % 0 % 08/18/17 09:09 Nucleated RBC % 1.0 % (0.0-0.9) H 08/18/17 09:09 Seg Neutrophils # 3.3 K/mm3 (1.8-7.7) 08/17/17 15:02 Seg Neutrophils # Man 6.4 K/mm3 (1.8-7.7) 08/18/17 09:09 Band Neutrophils # 0.0 K/mm3 08/18/17 09:09 Lymphocytes # (Manual) 0.3 K/mm3 (1.2-5.4) L 08/18/17 09:09 Abs React Lymphs (Man) 0.0 K/mm3 08/18/17 09:09 Monocytes # (Manual) 0.0 K/mm3 (0.0-0.8) 08/18/17 09:09 Eosinophils # (Manual) 0.0 K/mm3 (0.0-0.4) 08/18/17 09:09 Basophils # (Manual) 0.0 K/mm3 (0.0-0.1) 08/18/17 09:09 Metamyelocytes # 0.0 K/mm3 08/18/17 09:09 Myelocytes # 0.0 K/mm3 08/18/17 09:09 Promyelocytes # 0.0 K/mm3 08/18/17 09:09 Blast Cells # 0.0 K/mm3 08/18/17 09:09 WBC Morphology Not Reportable 08/18/17 09:09 Hypersegmented Neuts Not Reportable 08/18/17 09:09 Hyposegmented Neuts Not Reportable 08/18/17 09:09 Hypogranular Neuts Not Reportable 08/18/17 09:09 Smudge Cells Not Reportable 08/18/17 09:09 Toxic Granulation Not Reportable 08/18/17 09:09 Toxic Vacuolation Not Reportable 08/18/17 09:09 Dohle Bodies Not Reportable 08/18/17 09:09 [place]-Huet Anomaly Not Reportable 08/18/17 09:09 Cristin Rods Not Reportable 08/18/17 09:09 Platelet Estimate Consistent w auto 08/18/17 09:09 Clumped Platelets Not Reportable 08/18/17 09:09 Plt Clumps, EDTA Not Reportable 08/18/17 09:09 Large Platelets Not Reportable 08/18/17 09:09 Giant Platelets Not Reportable 08/18/17 09:09 Platelet Satelliting Not Reportable 08/18/17 09:09 Plt Morphology Comment Not Reportable 08/18/17 09:09 RBC Morphology Not Reportable 08/18/17 09:09 Dimorphic RBCs Not Reportable 08/18/17 09:09 Polychromasia Not Reportable 08/18/17 09:09 Hypochromasia Not Reportable 08/18/17 09:09 Poikilocytosis Not Reportable 08/18/17 09:09 Basophilic Stippling Rare 08/18/17 09:09 Anisocytosis Not Reportable 08/18/17 09:09 Microcytosis Not Reportable 08/18/17 09:09 Macrocytosis Not Reportable 08/18/17 09:09 Spherocytes Not Reportable 08/18/17 09:09 Pappenheimer Bodies Not Reportable 08/18/17 09:09 Sickle Cells Not Reportable 08/18/17 09:09 Target Cells Not Reportable 08/18/17 09:09 Tear Drop Cells Not Reportable 08/18/17 09:09 Ovalocytes Not Reportable 08/18/17 09:09 Helmet Cells Not Reportable 08/18/17 09:09 Guerrier-Dozier Bodies Not Reportable 08/18/17 09:09 [place] Rings Not Reportable 08/18/17 09:09 [place] Cells Not Reportable 08/18/17 09:09 Bite Cells Not Reportable 08/18/17 09:09 Crenated Cell Not Reportable 08/18/17 09:09 Elliptocytes Not Reportable 08/18/17 09:09 Acanthocytes (Spur) Not Reportable 08/18/17 09:09 Rouleaux Not Reportable 08/18/17 09:09 Hemoglobin C Crystals Not Reportable 08/18/17 09:09 Schistocytes Not Reportable 08/18/17 09:09 Malaria parasites Not Reportable 08/18/17 09:09 Bryce Bodies Not Reportable 08/18/17 09:09 Hem Pathologist Commnt No 08/18/17 09:09 PT 11.8 Sec. (12.2-14.9) L 08/15/17 21:28 INR 0.83 (0.87-1.13) L 08/15/17 21:28 APTT 25.8 Sec. (24.2-36.6) 08/15/17 21:28 POC ABG pH 7.291 (7.35-7.45) L 08/16/17 08:47 POC ABG pCO2 71.6 (35-45) H 08/16/17 08:47 POC ABG pO2 235 (80-105) H 08/16/17 08:47 POC ABG HCO3 34.4 08/16/17 08:47 POC ABG Total CO2 37 08/16/17 08:47 POC ABG O2 Sat 100 08/16/17 08:47 POC ABG Base Excess 8 08/16/17 08:47 FiO2 40 % 08/16/17 08:47 Sodium 139 mmol/L (137-145) 08/19/17 08:02 Potassium 5.2 mmol/L (3.6-5.0) H 08/19/17 08:02 Chloride 101.2 mmol/L (98-107) 08/19/17 08:02 Carbon Dioxide 24 mmol/L (22-30) D 08/19/17 08:02 Anion Gap 19 mmol/L 08/19/17 08:02 BUN 73 mg/dL (7-17) H 08/19/17 08:02 Creatinine 3.2 mg/dL (0.7-1.2) H 08/19/17 08:02 Estimated GFR 18 ml/min 08/19/17 08:02 BUN/Creatinine Ratio 23 % 08/19/17 08:02 Glucose 157 mg/dL (65-100) H 08/19/17 08:02 POC Glucose 189 (70-105) H 08/19/17 07:01 Calcium 8.3 mg/dL (8.4-10.2) L 08/19/17 08:02 Total Bilirubin < 0.20 mg/dL (0.1-1.2) 08/15/17 21:28 AST 11 units/L (5-40) 08/15/17 21:28 ALT 18 units/L (7-56) 08/15/17 21:28 Alkaline Phosphatase 109 units/L (35-129) 08/15/17 21:28 Ammonia 27.0 umol/L (25-60) 08/15/17 21:28 Total Creatine Kinase 59 units/L (30-135) 08/16/17 11:01 CK-MB (CK-2) 1.6 ng/mL (0.0-4.0) 08/16/17 11:01 CK-MB (CK-2) Rel Index 2.7 (0-4) 08/16/17 11:01 Troponin T 0.032 ng/mL (0.00-0.029) H D 08/16/17 11:01 NT-Pro-B Natriuret Pep 5031 pg/mL (0-900) H 08/15/17 21:28 Total Protein 5.4 g/dL (6.3-8.2) L 08/15/17 21:28 Albumin 3.0 g/dL (3.9-5) L 08/15/17 21:28 Albumin/Globulin Ratio 1.3 % 08/15/17 21:28 Triglycerides 143 mg/dL (2-149) 08/15/17 21:28 Cholesterol 272 mg/dL (50-199) H 08/15/17 21:28 LDL Cholesterol Direct 167 mg/dL (50-130) H 08/15/17 21:28 HDL Cholesterol 102 mg/dL (40-59) H 08/15/17 21:28 Cholesterol/HDL Ratio 2.66 % 08/15/17 21:28 TSH 2.910 mlU/mL (0.270-4.200) 08/15/17 21:37 Free T4 1.09 ng/dL (0.76-1.46) 08/15/17 21:37 Urine Color Yellow (Yellow) 08/15/17 23:44 Urine Turbidity Clear (Clear) 08/15/17 23:44 Urine pH 6.0 (5.0-7.0) 08/15/17 23:44 Ur Specific [place] 1.011 (1.003-1.030) 08/15/17 23:44 Urine Protein >500 mg/dL (Negative) 08/15/17 23:44 Urine Glucose (UA) >=500 mg/dL (Negative) 08/15/17 23:44 Urine Ketones Neg mg/dL (Negative) 08/15/17 23:44 Urine Blood Neg (Negative) 08/15/17 23:44 Urine Nitrite Neg (Negative) 08/15/17 23:44 Urine Bilirubin Neg (Negative) 08/15/17 23:44 Urine Urobilinogen < 2.0 mg/dL (<2.0) 08/15/17 23:44 Ur Leukocyte Esterase Neg (Negative) 08/15/17 23:44 Urine WBC (Auto) 2.0 /HPF (0.0-6.0) 08/15/17 23:44 Urine RBC (Auto) 1.0 /HPF (0.0-6.0) 08/15/17 23:44 U Epithel Cells (Auto) < 1.0 /HPF (0-13.0) 08/15/17 23:44 Amorphous Crystals 2+ 08/15/17 23:44 Hyaline Casts 3 /LPF 08/15/17 23:44 Urine Mucus Few /HPF 08/15/17 23:44 Urine Opiates Screen Presumptive negative 08/15/17 23:44 Urine Methadone Screen Presumptive negative 08/15/17 23:44 Ur Barbiturates Screen Presumptive negative 08/15/17 23:44 Ur Phencyclidine Scrn Presumptive negative 08/15/17 23:44 Ur Amphetamines Screen Presumptive negative 08/15/17 23:44 U Benzodiazepines Scrn Presumptive negative 08/15/17 23:44 Urine Cocaine Screen Presumptive negative 08/15/17 23:44 U Marijuana (THC) Screen Presumptive negative 08/15/17 23:44 Drugs of Abuse Note Disclamer 08/15/17 23:44 Plasma/Serum Alcohol < 0.01 % (0-0.07) 08/15/17 21:37
[2017-08-19] MEDS ORDERED: ZITHROMAX PO SCH (10:00)
[2017-08-19] MEDS ORDERED: cefTRIAXone 2 GM in NACL 0.9% 20 ML IV SCH (10:00)
[2017-08-19] MEDS: TOPROL XL PO SCH (10:02)
[2017-08-19] MEDS: HALFPRIN EC PO SCH (10:02)
[2017-08-19] MEDS: PROzac PO SCH (10:02)
[2017-08-19] MEDS: SODIUM CHLORIDE FLUSH SYRINGE 10 ML IV SCH ×2 (10:03→22:49)
[2017-08-19] MEDS: LOVENOX SUB-Q SCH (10:03)
[2017-08-19] MEDS: LEVAQUIN PO SCH (12:36)
[2017-08-19] MEDS ORDERED: DORZOLAMIDE HCL OU SCH (18:00)
[2017-08-19] MEDS ORDERED: TIMOLOL MALEAT OU SCH (18:00)
[2017-08-19] MEDS ORDERED: KIONEX PO ONE (22:10)
[2017-08-19] MEDS: LANTUS SUB-Q SCH (22:30)
[2017-08-20 06:18] LABS: Calcium 7.8 mg/dL (8.4-10.2)
--- NOTE | 2017-08-20 07:34 | Consultation ---
History of Present Illness - Reason for Consult Consult date: 08/19/17 acute renal failure, chronic renal failure, hyperkalemia - History of Present Illness The patient is a 62-year-old female with medical history significant for Type 2 DM, HTN, Diastolic CHF with ejection fraction 55-60%, Right Pleural effusion, COPD on home O2, SELENE, Anemia, CAD and CKD stage 4 who came to the ER on 2017 with altered mental status. Of note she was discharged from the hospital on 08/06/2017. The patient is a poor historian. She had a fall at [place]. At baseline she has shortness of breath. She denies any new complaint. Nephrology consulted for evaluation of elevated creatinine and hyperkalemia. Her creatinine is 3.2, increased from 2.1, with K of 5.2. No hypotension during this admission. Past History Past Medical History: anemia, COPD, diabetes, heart failure, hypertension, renal failure, other (Obesity, SELENE) Medications and Allergies Allergies Allergy/AdvReac Type Severity Reaction Status Date / Time No Known Allergies Allergy Verified 07/26/17 09:25 Home Medications Medication Instructions Recorded Confirmed Last Taken Type Albuterol Sulfate 108 mcg INHALATION Q6HR PRN 07/26/17 08/15/17 Unknown History DUONEB *Not for PRN Use* 3 ml INHALATION Q6H PRN 07/26/17 08/15/17 Unknown History Dorzolamide HCl/Timolol Maleat 1 drop OU QPM 07/26/17 08/15/17 1 Day Ago History ~07/25/17 Ergocalciferol [Vitamin D2] 50,000 unit PO QWEEK 07/26/17 08/15/17 Unknown History FLUoxetine [PROzac] 20 mg PO QDAY 07/26/17 08/15/17 Unknown History Ferrous Sulfate [Feosol 325 MG tab] 1 tab PO QDAY 07/26/17 08/15/17 Unknown History Metoprolol Xl [Metoprolol 1 tab PO QDAY 07/26/17 08/15/17 Unknown History SUCCINATE ER TAB] Chlorothiazide [Diuril] 500 mg PO Q12H #60 tablet 07/31/17 08/15/17 Unknown Rx Famotidine [Pepcid] 20 mg PO DAILY #30 tablet 07/31/17 08/15/17 Unknown Rx Insulin Glargine [Lantus VIAL] 15 units SUB-Q QHS #30 units 07/31/17 08/15/17 Unknown Rx hydrALAZINE [Apresoline TAB] 50 mg PO TID #90 tablet 07/31/17 08/15/17 Unknown Rx Aspirin [Aspir-Low] 1 tab PO QDAY #30 tablet. 08/05/17 08/15/17 Unknown Rx Ipratropium/Albuterol Sulfate 1 ampul IH TIDRT ampul.neb 08/05/17 08/15/17 Unknown Rx [DUONEB *Not for PRN Use*] Lispro Insulin [Humalog] 0 unit SUB-Q ACHS units 08/05/17 08/15/17 Unknown Rx oxyCODONE /ACETAMINOPHEN [Percocet 1 tab PO Q6H PRN #10 tablet 08/05/17 Unknown Rx 5/325 mg] Active Meds: Active Medications Acetaminophen (Tylenol) 650 mg PO Q4H PRN PRN Reason: Pain MILD(1-3)/Fever >100.5/AGUAYO Last Admin: 08/16/17 18:01 Dose: 650 mg Albuterol (Proventil) 2.5 mg IH Q4HRT PRN PRN Reason: Shortness Of Breath Albuterol/Ipratropium (Duoneb *Not For Prn Use*) 1 ampul IH TIDRT [facility] Last Admin: 08/19/17 20:53 Dose: 1 ampul Aspirin (Halfprin Ec) 81 mg PO QDAY [facility] Last Admin: 08/19/17 10:02 Dose: 81 mg Dextrose (D50w (25gm) Syringe) 50 ml IV PRN PRN PRN Reason: Hypoglycemia Enoxaparin Sodium (Lovenox) 30 mg SUB-Q QDAY [facility] Last Admin: 08/19/17 10:03 Dose: 30 mg Ergocalciferol (Vitamin D2) 50,000 unit PO Mo [facility] Last Admin: 08/19/17 10:06 Dose: 50,000 unit Fluoxetine HCl (Prozac) 20 mg PO QDAY [facility] Last Admin: 08/19/17 10:02 Dose: 20 mg Hydralazine HCl (Apresoline) 50 mg PO TID [facility] Last Admin: 08/19/17 22:36 Dose: Not Given Insulin Glargine (Lantus) 22 units SUB-Q QHS [facility] Last Admin: 08/19/17 22:30 Dose: 22 units Insulin Human Regular (Humulin R) 0 units SUB-Q ACHS [facility]; Protocol Last Admin: 08/19/17 22:31 Dose: 6 units Levofloxacin (Levaquin) 500 mg PO Q48H [facility] Last Admin: 08/19/17 12:36 Dose: 500 mg Methylprednisolone Sodium Succinate (Solu-Medrol) 40 mg IV Q12H [facility] Last Admin: 08/19/17 22:29 Dose: 40 mg Metoprolol Succinate (Toprol Xl) 50 mg PO QDAY [facility] Last Admin: 08/19/17 10:02 Dose: 50 mg Miscellaneous Medication (Dorzolamide Hcl/Timolol Maleat) 1 drop OU QPM [facility] Ondansetron HCl (Zofran) 4 mg IV Q8H PRN PRN Reason: Nausea And Vomiting Last Admin: 08/18/17 22:11 Dose: 4 mg Sodium Chloride (Sodium Chloride Flush Syringe 10 Ml) 10 ml IV BID [facility] Last Admin: 08/19/17 22:49 Dose: 10 ml Sodium Chloride (Sodium Chloride Flush Syringe 10 Ml) 10 ml IV PRN PRN PRN Reason: LINE FLUSH Review of Systems Constitutional: no weight loss, no weight gain, no fever, no chills, no anorexia , no weakness Ears, nose, mouth and throat: no epistaxis Breasts: deferred Cardiovascular: orthopnea, edema, shortness of breath, dyspnea on exertion, high blood pressure, leg edema, decreased exercise tolerance, no chest pain, no palpitations, no rapid/irregular heart beat, no syncope, no lightheadedness Respiratory: shortness of breath, dyspnea on exertion, no cough Gastrointestinal: no abdominal pain, no nausea, no vomiting, no diarrhea, no melena Genitourinary Female: no hematuria Integumentary: no rash, no jaundice Neurological: change in mentation, confusion, no aphasia Exam - Vital Signs Vital signs: Vital Signs Pulse Ox 100 08/15/17 20:08 - General Appearance General appearance: well-developed, well-nourished, appears stated age, obese, other (no distress) EENT: ATNC, PERRL, mucous membranes moist, hearing intact, vision intact Neck: Present: neck supple, trachea midline Respiratory: Decreased Breath Sounds (both bases) Heart: regular, S1S2, no murmurs Gastrointestinal: Present: normoactive bowel sounds, obese. Absent: tenderness Integumentary: no rash Neurologic: no focal deficit, no asterixis, alert and oriented x3 Musculoskeletal: Present: other (trace to 1+ edema of both LEs ) Psychiatric: cooperative Results - Lab Results 08/18/17 09:09 08/20/17 05:15 Most recent lab results Calcium 7.8 mg/dL (8.4-10.2) L 08/20/17 05:15 Assessment and Plan 1. Acute kidney injury: WILDA superimposed on CKD stage 4 in the setting of CHF. Likely ATN. Hemodynamically stable. Monitor renal function. 2. Hyperkalemia: Kayexalate ordered. Monitor. 3. Diastolic CHF. 4. Respiratory failure: COPD exacerbation. H/o SELENE. BIPAP as needed. 5. Type 2 diabetes mellitus. 6. Hypertension. 7. Anemia.
[2017-08-20] MEDS: DUONEB *Not for PRN Use IH SCH ×3 (09:48→20:02)
[2017-08-20] MEDS: HumuLIN R SUB-Q SCH ×4 (10:06→22:44)
[2017-08-20] MEDS: LOVENOX SUB-Q SCH (10:49)
[2017-08-20] MEDS: PROzac PO SCH (10:49)
[2017-08-20] MEDS: APRESOLINE PO SCH ×3 (10:49→22:41)
[2017-08-20] MEDS: TOPROL XL PO SCH (10:49)
[2017-08-20] MEDS: HALFPRIN EC PO SCH (10:49)
[2017-08-20] MEDS: SODIUM CHLORIDE FLUSH SYRINGE 10 ML IV SCH ×2 (10:50→22:43)
--- NOTE | 2017-08-20 14:19 | Progress Note ---
Assessment and Plan 1. Acute kidney injury: WILDA superimposed on CKD stage 4 in the setting of CHF. Likely ATN. Hemodynamically stable. Renal US, Urine studies and Antibodies ordered. Monitor renal function. 2. Hyperkalemia: Improved. Monitor. 3. Diastolic CHF. 4. Respiratory failure: COPD exacerbation. H/o SELENE. BIPAP as needed. 5. Type 2 diabetes mellitus. 6. Hypertension. 7. Anemia. Subjective Date of service: 08/20/17 Interval history: Patient is doing ok. Objective - Vital Signs Vital signs: Vital Signs - 12hr 08/20/17 08/20/17 08/20/17 04:46 07:33 08:00 Temperature 98.0 F 98.2 F Pulse Rate 65 63 Pulse Rate [ 70 Anterior Bilateral Throughout] Respiratory 22 8 L Rate Respiratory 18 Rate [Anterior Bilateral Throughout] Blood Pressure 107/79 165/64 O2 Sat by Pulse 93 98 Oximetry 08/20/17 08/20/17 08/20/17 09:26 09:30 09:49 Temperature Pulse Rate 63 Pulse Rate [ 90 Anterior Bilateral Throughout] Respiratory 17 Rate Respiratory 18 Rate [Anterior Bilateral Throughout] Blood Pressure O2 Sat by Pulse 97 Oximetry 08/20/17 08/20/17 09:50 13:20 Temperature Pulse Rate Pulse Rate [ 90 Anterior Bilateral Throughout] Respiratory Rate Respiratory 19 Rate [Anterior Bilateral Throughout] Blood Pressure O2 Sat by Pulse 99 Oximetry - General Appearance General appearance: well-developed, well-nourished, appears stated age, obese, other (no distress) EENT: ATNC, PERRL, hearing intact, vision intact Neck: supple Respiratory: Present: Clear to Ascultation, Decreased Breath Sounds (both bases) Cardiology: regular, S1S2, no murmurs Gastrointestinal: normoactive bowel sounds, no tenderness, obese Integumentary: no rash, warm and dry Neurologic: no focal deficit, no asterixis, alert and oriented x3 Musculoskeletal: other (1+ edema of both LEs) Psychiatric: cooperative - Lab 08/18/17 09:09 08/20/17 05:15 Most recent lab results Calcium 7.8 mg/dL (8.4-10.2) L 08/20/17 05:15
--- NOTE | 2017-08-20 14:35 | Progress Note ---
Assessment and Plan Assessment and plan: --Acute on chronic kidney disease stage III Creatinine is 3.2 no change for the last 3 days Nephrology following Avoid nephrotoxins nephrology evaluation Cleared for discharge and follow-up with them in the office --Acute hypoxic respiratory failure: Symptoms slightly improved Oxygen titrate O2 sats to more than 90%, nebulizers, IV steroids, IV antibiotics BiPAP as needed --COPD exacerbation; Oxygen nebulizers and IV steroids and antibiotics inhalation steroids Evaluation for home oxygen at discharge --Acute on chronic diastolic congestive heart failure Ejection fraction 50-55%, continue anti-failure medications Low sodium diet, closely monitor --Type 2 diabetes mellitus; uncontrolled Secondary to IV steroids, Accu-Chek sliding scale coverage and ADA diet and insulin Closely monitor blood sugars, adjust insulin dose as needed --Hypertension; moderate control, continue current antihypertensives When necessary medications --DVT prophylaxis; Lovenox Patient is medically stable for discharge, back to intermediate today DC planning;per management Plan of care discussed with the nurse and case management History Interval history: Recent seen and examined medical records reviewed Patient feels better no new complaints Renal function stable no change Denies any chest pain or shortness of breath Vital signs reviewed stable Hospitalist Physical - Constitutional Vitals: Temp Pulse Resp BP Pulse Ox 98.2 F 90 19 165/64 99 08/20/17 08:00 08/20/17 13:20 08/20/17 13:20 08/20/17 07:33 08/20/17 09:50 General appearance: Present: no acute distress, well-nourished, obese - EENT Eyes: Present: PERRL, EOM intact - Neck Neck: Present: supple, normal ROM - Respiratory Respiratory effort: normal Respiratory: bilateral: diminished, negative: rales, rhonchi, wheezing - Cardiovascular Rhythm: regular Heart Sounds: Present: S1 & S2 - Extremities Extremities: no ischemia, No edema - Abdominal General gastrointestinal: soft, non-tender, non-distended, normal bowel sounds - Integumentary Integumentary: Present: clear, warm - Psychiatric Psychiatric: appropriate mood/affect, cooperative - Neurologic Neurologic: CNII-XII intact, moves all extremities Results - Labs CBC & Chem 7: 08/18/17 09:09 08/20/17 05:15 Labs: Laboratory Last Values WBC 6.7 K/mm3 (4.5-11.0) 08/18/17 09:09 RBC 3.23 M/mm3 (3.65-5.03) L 08/18/17 09:09 Hgb 9.0 gm/dl (10.1-14.3) L 08/18/17 09:09 Hct 28.1 % (30.3-42.9) L 08/18/17 09:09 MCV 87 fl (79-97) 08/18/17 09:09 MCH 28 pg (28-32) 08/18/17 09:09 MCHC 32 % (30-34) 08/18/17 09:09 RDW 17.5 % (13.2-15.2) H 08/18/17 09:09 Plt Count 404 K/mm3 (140-440) 08/18/17 09:09 Lymph % (Auto) 9.6 % (13.4-35.0) L 08/17/17 15:02 Stone % (Auto) 5.7 % (0.0-7.3) 08/17/17 15:02 Eos % (Auto) 0.0 % (0.0-4.3) 08/17/17 15:02 Baso % (Auto) 0.2 % (0.0-1.8) 08/17/17 15:02 Lymph # 0.4 K/mm3 (1.2-5.4) L 08/17/17 15:02 Stone # 0.2 K/mm3 (0.0-0.8) 08/17/17 15:02 Eos # 0.0 K/mm3 (0.0-0.4) 08/17/17 15:02 Baso # 0.0 K/mm3 (0.0-0.1) 08/17/17 15:02 Add Manual Diff Complete 08/18/17 09:09 Total Counted 100 08/18/17 09:09 Seg Neutrophils % Airworthiness Safety Inspector 08/18/17 09:09 Seg Neuts % (Manual) 95.0 % (40.0-70.0) H 08/18/17 09:09 Band Neutrophils % 0 % 08/18/17 09:09 Lymphocytes % (Manual) 5.0 % (13.4-35.0) L 08/18/17 09:09 Reactive Lymphs % (Man) 0 % 08/18/17 09:09 Monocytes % (Manual) 0 % (0.0-7.3) 08/18/17 09:09 Eosinophils % (Manual) 0 % (0.0-4.3) 08/18/17 09:09 Basophils % (Manual) 0 % (0.0-1.8) 08/18/17 09:09 Metamyelocytes % 0 % 08/18/17 09:09 Myelocytes % 0 % 08/18/17 09:09 Promyelocytes % 0 % 08/18/17 09:09 Blast Cells % 0 % 08/18/17 09:09 Nucleated RBC % 1.0 % (0.0-0.9) H 08/18/17 09:09 Seg Neutrophils # 3.3 K/mm3 (1.8-7.7) 08/17/17 15:02 Seg Neutrophils # Man 6.4 K/mm3 (1.8-7.7) 08/18/17 09:09 Band Neutrophils # 0.0 K/mm3 08/18/17 09:09 Lymphocytes # (Manual) 0.3 K/mm3 (1.2-5.4) L 08/18/17 09:09 Abs React Lymphs (Man) 0.0 K/mm3 08/18/17 09:09 Monocytes # (Manual) 0.0 K/mm3 (0.0-0.8) 08/18/17 09:09 Eosinophils # (Manual) 0.0 K/mm3 (0.0-0.4) 08/18/17 09:09 Basophils # (Manual) 0.0 K/mm3 (0.0-0.1) 08/18/17 09:09 Metamyelocytes # 0.0 K/mm3 08/18/17 09:09 Myelocytes # 0.0 K/mm3 08/18/17 09:09 Promyelocytes # 0.0 K/mm3 08/18/17 09:09 Blast Cells # 0.0 K/mm3 08/18/17 09:09 WBC Morphology Not Reportable 08/18/17 09:09 Hypersegmented Neuts Not Reportable 08/18/17 09:09 Hyposegmented Neuts Not Reportable 08/18/17 09:09 Hypogranular Neuts Not Reportable 08/18/17 09:09 Smudge Cells Not Reportable 08/18/17 09:09 Toxic Granulation Not Reportable 08/18/17 09:09 Toxic Vacuolation Not Reportable 08/18/17 09:09 Dohle Bodies Not Reportable 08/18/17 09:09 Pelger-Huet Anomaly Not Reportable 08/18/17 09:09 Cristin Rods Not Reportable 08/18/17 09:09 Platelet Estimate Consistent w auto 08/18/17 09:09 Clumped Platelets Not Reportable 08/18/17 09:09 Plt Clumps, EDTA Not Reportable 08/18/17 09:09 Large Platelets Not Reportable 08/18/17 09:09 Giant Platelets Not Reportable 08/18/17 09:09 Platelet Satelliting Not Reportable 08/18/17 09:09 Plt Morphology Comment Not Reportable 08/18/17 09:09 RBC Morphology Not Reportable 08/18/17 09:09 Dimorphic RBCs Not Reportable 08/18/17 09:09 Polychromasia Not Reportable 08/18/17 09:09 Hypochromasia Not Reportable 08/18/17 09:09 Poikilocytosis Not Reportable 08/18/17 09:09 Basophilic Stippling Rare 08/18/17 09:09 Anisocytosis Not Reportable 08/18/17 09:09 Microcytosis Not Reportable 08/18/17 09:09 Macrocytosis Not Reportable 08/18/17 09:09 Spherocytes Not Reportable 08/18/17 09:09 Pappenheimer Bodies Not Reportable 08/18/17 09:09 Sickle Cells Not Reportable 08/18/17 09:09 Target Cells Not Reportable 08/18/17 09:09 Tear Drop Cells Not Reportable 08/18/17 09:09 Ovalocytes Not Reportable 08/18/17 09:09 Helmet Cells Not Reportable 08/18/17 09:09 Guerrier-Fordyce Bodies Not Reportable 08/18/17 09:09 [place] Rings Not Reportable 08/18/17 09:09 Paty Cells Not Reportable 08/18/17 09:09 Bite Cells Not Reportable 08/18/17 09:09 Crenated Cell Not Reportable 08/18/17 09:09 Elliptocytes Not Reportable 08/18/17 09:09 Acanthocytes (Spur) Not Reportable 08/18/17 09:09 Rouleaux Not Reportable 08/18/17 09:09 Hemoglobin C Crystals Not Reportable 08/18/17 09:09 Schistocytes Not Reportable 08/18/17 09:09 Malaria parasites Not Reportable 08/18/17 09:09 Bryce Bodies Not Reportable 08/18/17 09:09 Hem Pathologist Commnt No 08/18/17 09:09 PT 11.8 Sec. (12.2-14.9) L 08/15/17 21:28 INR 0.83 (0.87-1.13) L 08/15/17 21:28 APTT 25.8 Sec. (24.2-36.6) 08/15/17 21:28 POC ABG pH 7.291 (7.35-7.45) L 08/16/17 08:47 POC ABG pCO2 71.6 (35-45) H 08/16/17 08:47 POC ABG pO2 235 (80-105) H 08/16/17 08:47 POC ABG HCO3 34.4 08/16/17 08:47 POC ABG Total CO2 37 08/16/17 08:47 POC ABG O2 Sat 100 08/16/17 08:47 POC ABG Base Excess 8 08/16/17 08:47 FiO2 40 % 08/16/17 08:47 Sodium 143 mmol/L (137-145) 08/20/17 05:15 Potassium 4.5 mmol/L (3.6-5.0) 08/20/17 05:15 Chloride 103.4 mmol/L (98-107) 08/20/17 05:15 Carbon Dioxide 26 mmol/L (22-30) 08/20/17 05:15 Anion Gap 18 mmol/L 08/20/17 05:15 BUN 72 mg/dL (7-17) H 08/20/17 05:15 Creatinine 3.2 mg/dL (0.7-1.2) H 08/20/17 05:15 Estimated GFR 18 ml/min 08/20/17 05:15 BUN/Creatinine Ratio 23 % 08/20/17 05:15 Glucose 190 mg/dL (65-100) H 08/20/17 05:15 POC Glucose 178 (70-105) H 08/20/17 11:40 Calcium 7.8 mg/dL (8.4-10.2) L 08/20/17 05:15 Total Bilirubin < 0.20 mg/dL (0.1-1.2) 08/15/17 21:28 AST 11 units/L (5-40) 08/15/17 21:28 ALT 18 units/L (7-56) 08/15/17 21:28 Alkaline Phosphatase 109 units/L (35-129) 08/15/17 21:28 Ammonia 27.0 umol/L (25-60) 08/15/17 21:28 Total Creatine Kinase 59 units/L (30-135) 08/16/17 11:01 CK-MB (CK-2) 1.6 ng/mL (0.0-4.0) 08/16/17 11:01 CK-MB (CK-2) Rel Index 2.7 (0-4) 08/16/17 11:01 Troponin T 0.032 ng/mL (0.00-0.029) H D 08/16/17 11:01 NT-Pro-B Natriuret Pep 5031 pg/mL (0-900) H 08/15/17 21:28 Total Protein 5.4 g/dL (6.3-8.2) L 08/15/17 21:28 Albumin 3.0 g/dL (3.9-5) L 08/15/17 21:28 Albumin/Globulin Ratio 1.3 % 08/15/17 21:28 Triglycerides 143 mg/dL (2-149) 08/15/17 21:28 Cholesterol 272 mg/dL (50-199) H 08/15/17 21:28 LDL Cholesterol Direct 167 mg/dL (50-130) H 08/15/17 21:28 HDL Cholesterol 102 mg/dL (40-59) H 08/15/17 21:28 Cholesterol/HDL Ratio 2.66 % 08/15/17 21:28 TSH 2.910 mlU/mL (0.270-4.200) 08/15/17 21:37 Free T4 1.09 ng/dL (0.76-1.46) 08/15/17 21:37 Urine Color Yellow (Yellow) 08/15/17 23:44 Urine Turbidity Clear (Clear) 08/15/17 23:44 Urine pH 6.0 (5.0-7.0) 08/15/17 23:44 Ur Specific [place] 1.011 (1.003-1.030) 08/15/17 23:44 Urine Protein >500 mg/dL (Negative) 08/15/17 23:44 Urine Glucose (UA) >=500 mg/dL (Negative) 08/15/17 23:44 Urine Ketones Neg mg/dL (Negative) 08/15/17 23:44 Urine Blood Neg (Negative) 08/15/17 23:44 Urine Nitrite Neg (Negative) 08/15/17 23:44 Urine Bilirubin Neg (Negative) 08/15/17 23:44 Urine Urobilinogen < 2.0 mg/dL (<2.0) 08/15/17 23:44 Ur Leukocyte Esterase Neg (Negative) 08/15/17 23:44 Urine WBC (Auto) 2.0 /HPF (0.0-6.0) 08/15/17 23:44 Urine RBC (Auto) 1.0 /HPF (0.0-6.0) 08/15/17 23:44 U Epithel Cells (Auto) < 1.0 /HPF (0-13.0) 08/15/17 23:44 Amorphous Crystals 2+ 08/15/17 23:44 Hyaline Casts 3 /LPF 08/15/17 23:44 Urine Mucus Few /HPF 08/15/17 23:44 Urine Opiates Screen Presumptive negative 08/15/17 23:44 Urine Methadone Screen Presumptive negative 08/15/17 23:44 Ur Barbiturates Screen Presumptive negative 08/15/17 23:44 Ur Phencyclidine Scrn Presumptive negative 08/15/17 23:44 Ur Amphetamines Screen Presumptive negative 08/15/17 23:44 U Benzodiazepines Scrn Presumptive negative 08/15/17 23:44 Urine Cocaine Screen Presumptive negative 08/15/17 23:44 U Marijuana (THC) Screen Presumptive negative 08/15/17 23:44 Drugs of Abuse Note Disclamer 08/15/17 23:44 Plasma/Serum Alcohol < 0.01 % (0-0.07) 08/15/17 21:37
[2017-08-20] MEDS: LANTUS SUB-Q SCH (22:43)
[2017-08-21 07:18] LABS: Creatinine,Urine 56.7 mg/dL (0.1-20.0)
[2017-08-21 07:31] LABS: Protein/Creatinine Ratio,Urine 6.98
[2017-08-21] MEDS: HumuLIN R SUB-Q SCH ×4 (08:00→22:17)
[2017-08-21] MEDS: DUONEB *Not for PRN Use IH SCH ×3 (08:26→21:05)
--- NOTE | 2017-08-21 08:42 | Progress Note ---
Assessment and Plan 1. Acute kidney injury: WILDA superimposed on CKD stage 4 in the setting of CHF. Hemodynamically stable. Creatinine level is better today. Renal US and . Monitor renal function. 2. Hyperkalemia: Improved. Monitor. 3. Nephrotic range Proteinuria: Likely diabetic nephropathy. Antibodies are pending. Very unlikely we will be able to do kidney biopsy due to orthopnea and body habitus. Patient will not be able to maintain probe position. 4. Diastolic CHF. 5. Respiratory failure: COPD exacerbation. H/o SELENE. BIPAP as needed. 6. Type 2 diabetes mellitus. 7. Hypertension. 8. Anemia. Subjective Date of service: 08/21/17 Interval history: Patient is doing ok. Objective - Vital Signs Vital signs: Vital Signs - 12hr 08/20/17 08/20/17 08/20/17 22:41 23:17 23:54 Temperature 98.1 F Pulse Rate 70 73 67 Pulse Rate [ Anterior Bilateral Throughout] Respiratory 26 H 20 Rate Respiratory Rate [Anterior Bilateral Throughout] Blood Pressure 176/60 126/52 O2 Sat by Pulse 98 98 Oximetry 08/21/17 08/21/17 08/21/17 03:00 04:04 07:49 Temperature 98.1 F 98.3 F Pulse Rate 62 67 68 Pulse Rate [ Anterior Bilateral Throughout] Respiratory 20 20 Rate Respiratory Rate [Anterior Bilateral Throughout] Blood Pressure 132/58 166/68 O2 Sat by Pulse 96 96 Oximetry 08/21/17 08/21/17 08:00 08:28 Temperature Pulse Rate Pulse Rate [ 77 Anterior Bilateral Throughout] Respiratory Rate Respiratory 21 Rate [Anterior Bilateral Throughout] Blood Pressure O2 Sat by Pulse 100 Oximetry - General Appearance General appearance: well-developed, well-nourished, appears stated age, obese, other (no distress) EENT: ATNC, PERRL, hearing intact, vision intact Neck: supple Respiratory: Present: Decreased Breath Sounds (both bases) Cardiology: regular, S1S2, no murmurs Gastrointestinal: normoactive bowel sounds, no tenderness, obese Integumentary: no rash, warm and dry Neurologic: no focal deficit, no asterixis Musculoskeletal: other (1+ edema of both LEs noted) Psychiatric: cooperative - Lab 08/18/17 09:09 08/21/17 05:48 Most recent lab results Calcium 8.0 mg/dL (8.4-10.2) L 08/21/17 05:48 Urine Creatinine 56.7 mg/dL (0.1-20.0) H 08/21/17 06:37 Urine Sodium 51 mmol/L 08/21/17 06:37 Urine Total Protein 396 mg/dL (5-11.8) H 08/21/17 06:37
[2017-08-21] MEDS: APRESOLINE PO SCH ×3 (09:00→22:08)
[2017-08-21] MEDS: TOPROL XL PO SCH (09:10)
[2017-08-21] MEDS: LEVAQUIN PO SCH (09:10)
[2017-08-21] MEDS: LOVENOX SUB-Q SCH (09:12)
[2017-08-21] MEDS: HALFPRIN EC PO SCH (09:12)
[2017-08-21] MEDS: PROzac PO SCH (09:12)
[2017-08-21] MEDS: ZOFRAN IV PRN (11:09)
[2017-08-21] MEDS ORDERED: ZAROXOLYN PO SCH (12:00)
--- NOTE | 2017-08-21 15:32 | Progress Note ---
Assessment and Plan Assessment and plan: --Acute on chronic hypoxic respiratory failure: Symptoms slightly improved Oxygen titrate O2 sats to more than 90%, nebulizers, IV steroids, IV antibiotics BiPAP as needed --COPD exacerbation; Oxygen nebulizers and IV steroids and antibiotics inhalation steroids Evaluation for home oxygen at discharge --Acute on chronic kidney disease stage III Creatinine is improved from 3.2 to 2.9 today Nephrology following Avoid nephrotoxins nephrology evaluation Cleared for discharge and follow-up with them in the office --Acute on chronic diastolic congestive heart failure Ejection fraction 50-55%, continue anti-failure medications Low sodium diet, closely monitor --Type 2 diabetes mellitus; uncontrolled Secondary to IV steroids, Accu-Chek sliding scale coverage and ADA diet and insulin Closely monitor blood sugars, adjust insulin dose as needed --Hypertension; moderate control, continue current antihypertensives When necessary medications --DVT prophylaxis; Lovenox Discharge planning per case management ; Patient's insurance did not approve for rehabilitation, We'll discharge with home health ,home PT and home oxygen as needed Plan of care reviewed with the patient ,the nurse and case management Possible discharge home tomorrow when home health services are set up Patient is medically stable for discharge History Interval history: Patient seen and examined medical records reviewed No new events reported by the nursing Patient feels better no new complaints Vital signs reviewed Case management setting up home health and home oxygen Hospitalist Physical - Constitutional Vitals: Temp Pulse Resp BP Pulse Ox 98.3 F 72 22 146/55 96 08/21/17 10:39 08/21/17 14:27 08/21/17 14:00 08/21/17 14:27 08/21/17 10:39 General appearance: Present: no acute distress, well-nourished, obese - EENT Eyes: Present: PERRL, EOM intact - Neck Neck: Present: supple, normal ROM - Respiratory Respiratory effort: normal Respiratory: bilateral: diminished, negative: rales, rhonchi, wheezing - Cardiovascular Rhythm: regular Heart Sounds: Present: S1 & S2 - Extremities Extremities: no ischemia, No edema - Abdominal General gastrointestinal: soft, non-tender, non-distended, normal bowel sounds - Integumentary Integumentary: Present: clear, warm - Psychiatric Psychiatric: appropriate mood/affect, cooperative - Neurologic Neurologic: CNII-XII intact, moves all extremities Results - Labs CBC & Chem 7: 06/04/18 09:09 08/21/17 05:48 Labs: Laboratory Last Values WBC 6.7 K/mm3 (4.5-11.0) 08/18/17 09:09 RBC 3.23 M/mm3 (3.65-5.03) L 08/18/17 09:09 Hgb 9.0 gm/dl (10.1-14.3) L 08/18/17 09:09 Hct 28.1 % (30.3-42.9) L 08/18/17 09:09 MCV 87 fl (79-97) 08/18/17 09:09 MCH 28 pg (28-32) 08/18/17 09:09 MCHC 32 % (30-34) 08/18/17 09:09 RDW 17.5 % (13.2-15.2) H 08/18/17 09:09 Plt Count 404 K/mm3 (140-440) 08/18/17 09:09 Lymph % (Auto) 9.6 % (13.4-35.0) L 08/17/17 15:02 [place] % (Auto) 5.7 % (0.0-7.3) 08/17/17 15:02 Eos % (Auto) 0.0 % (0.0-4.3) 08/17/17 15:02 Baso % (Auto) 0.2 % (0.0-1.8) 08/17/17 15:02 Lymph # 0.4 K/mm3 (1.2-5.4) L 08/17/17 15:02 [place] # 0.2 K/mm3 (0.0-0.8) 08/17/17 15:02 Eos # 0.0 K/mm3 (0.0-0.4) 08/17/17 15:02 Baso # 0.0 K/mm3 (0.0-0.1) 08/17/17 15:02 Add Manual Diff Complete 08/18/17 09:09 Total Counted 100 08/18/17 09:09 Seg Neutrophils % [place] Automatic 08/18/17 09:09 Seg Neuts % (Manual) 95.0 % (40.0-70.0) H 08/18/17 09:09 Band Neutrophils % 0 % 08/18/17 09:09 Lymphocytes % (Manual) 5.0 % (13.4-35.0) L 08/18/17 09:09 Reactive Lymphs % (Man) 0 % 08/18/17 09:09 Monocytes % (Manual) 0 % (0.0-7.3) 08/18/17 09:09 Eosinophils % (Manual) 0 % (0.0-4.3) 08/18/17 09:09 Basophils % (Manual) 0 % (0.0-1.8) 08/18/17 09:09 Metamyelocytes % 0 % 08/18/17 09:09 Myelocytes % 0 % 08/18/17 09:09 Promyelocytes % 0 % 08/18/17 09:09 Blast Cells % 0 % 08/18/17 09:09 Nucleated RBC % 1.0 % (0.0-0.9) H 08/18/17 09:09 Seg Neutrophils # 3.3 K/mm3 (1.8-7.7) 08/17/17 15:02 Seg Neutrophils # Man 6.4 K/mm3 (1.8-7.7) 08/18/17 09:09 Band Neutrophils # 0.0 K/mm3 08/18/17 09:09 Lymphocytes # (Manual) 0.3 K/mm3 (1.2-5.4) L 08/18/17 09:09 Abs React Lymphs (Man) 0.0 K/mm3 08/18/17 09:09 Monocytes # (Manual) 0.0 K/mm3 (0.0-0.8) 08/18/17 09:09 Eosinophils # (Manual) 0.0 K/mm3 (0.0-0.4) 08/18/17 09:09 Basophils # (Manual) 0.0 K/mm3 (0.0-0.1) 08/18/17 09:09 Metamyelocytes # 0.0 K/mm3 08/18/17 09:09 Myelocytes # 0.0 K/mm3 08/18/17 09:09 Promyelocytes # 0.0 K/mm3 08/18/17 09:09 Blast Cells # 0.0 K/mm3 08/18/17 09:09 WBC Morphology Not Reportable 08/18/17 09:09 Hypersegmented Neuts Not Reportable 08/18/17 09:09 Hyposegmented Neuts Not Reportable 08/18/17 09:09 Hypogranular Neuts Not Reportable 08/18/17 09:09 Smudge Cells Not Reportable 08/18/17 09:09 Toxic Granulation Not Reportable 08/18/17 09:09 Toxic Vacuolation Not Reportable 08/18/17 09:09 Dohle Bodies Not Reportable 08/18/17 09:09 Pelger-Huet Anomaly Not Reportable 08/18/17 09:09 Cristin Rods Not Reportable 08/18/17 09:09 Platelet Estimate Consistent w auto 08/18/17 09:09 Clumped Platelets Not Reportable 08/18/17 09:09 Plt Clumps, EDTA Not Reportable 08/18/17 09:09 Large Platelets Not Reportable 08/18/17 09:09 Giant Platelets Not Reportable 08/18/17 09:09 Platelet Satelliting Not Reportable 08/18/17 09:09 Plt Morphology Comment Not Reportable 08/18/17 09:09 RBC Morphology Not Reportable 08/18/17 09:09 Dimorphic RBCs Not Reportable 08/18/17 09:09 Polychromasia Not Reportable 08/18/17 09:09 Hypochromasia Not Reportable 08/18/17 09:09 Poikilocytosis Not Reportable 08/18/17 09:09 Basophilic Stippling Rare 08/18/17 09:09 Anisocytosis Not Reportable 08/18/17 09:09 Microcytosis Not Reportable 08/18/17 09:09 Macrocytosis Not Reportable 08/18/17 09:09 Spherocytes Not Reportable 08/18/17 09:09 Pappenheimer Bodies Not Reportable 08/18/17 09:09 Sickle Cells Not Reportable 08/18/17 09:09 Target Cells Not Reportable 08/18/17 09:09 Tear Drop Cells Not Reportable 08/18/17 09:09 Ovalocytes Not Reportable 08/18/17 09:09 Helmet Cells Not Reportable 08/18/17 09:09 Guerrier-Osino Bodies Not Reportable 08/18/17 09:09 [place] Rings Not Reportable 08/18/17 09:09 Paty Cells Not Reportable 08/18/17 09:09 Bite Cells Not Reportable 08/18/17 09:09 Crenated Cell Not Reportable 08/18/17 09:09 Elliptocytes Not Reportable 08/18/17 09:09 Acanthocytes (Spur) Not Reportable 08/18/17 09:09 Rouleaux Not Reportable 08/18/17 09:09 Hemoglobin C Crystals Not Reportable 08/18/17 09:09 Schistocytes Not Reportable 08/18/17 09:09 Malaria parasites Not Reportable 08/18/17 09:09 Bryce Bodies Not Reportable 08/18/17 09:09 Hem Pathologist Commnt No 08/18/17 09:09 PT 11.8 Sec. (12.2-14.9) L 08/15/17 21:28 INR 0.83 (0.87-1.13) L 08/15/17 21:28 APTT 25.8 Sec. (24.2-36.6) 08/15/17 21:28 POC ABG pH 7.291 (7.35-7.45) L 08/16/17 08:47 POC ABG pCO2 71.6 (35-45) H 08/16/17 08:47 POC ABG pO2 235 (80-105) H 08/16/17 08:47 POC ABG HCO3 34.4 08/16/17 08:47 POC ABG Total CO2 37 08/16/17 08:47 POC ABG O2 Sat 100 08/16/17 08:47 POC ABG Base Excess 8 08/16/17 08:47 FiO2 40 % 08/16/17 08:47 Sodium 146 mmol/L (137-145) H 08/21/17 05:48 Potassium 4.3 mmol/L (3.6-5.0) 08/21/17 05:48 Chloride 103.3 mmol/L (98-107) 08/21/17 05:48 Carbon Dioxide 30 mmol/L (22-30) 08/21/17 05:48 Anion Gap 17 mmol/L 08/21/17 05:48 BUN 74 mg/dL (7-17) H 08/21/17 05:48 Creatinine 2.9 mg/dL (0.7-1.2) H 08/21/17 05:48 Estimated GFR 20 ml/min 08/21/17 05:48 BUN/Creatinine Ratio 26 % 08/21/17 05:48 Glucose 169 mg/dL (65-100) H 08/21/17 05:48 POC Glucose 183 (70-105) H 08/21/17 05:59 Calcium 8.0 mg/dL (8.4-10.2) L 08/21/17 05:48 Total Bilirubin < 0.20 mg/dL (0.1-1.2) 08/15/17 21:28 AST 11 units/L (5-40) 08/15/17 21:28 ALT 18 units/L (7-56) 08/15/17 21:28 Alkaline Phosphatase 109 units/L (35-129) 08/15/17 21:28 Ammonia 27.0 umol/L (25-60) 08/15/17 21:28 Total Creatine Kinase 59 units/L (30-135) 08/16/17 11:01 CK-MB (CK-2) 1.6 ng/mL (0.0-4.0) 08/16/17 11:01 CK-MB (CK-2) Rel Index 2.7 (0-4) 08/16/17 11:01 Troponin T 0.032 ng/mL (0.00-0.029) H D 08/16/17 11:01 NT-Pro-B Natriuret Pep 5031 pg/mL (0-900) H 08/15/17 21:28 Total Protein 5.4 g/dL (6.3-8.2) L 08/15/17 21:28 Albumin 3.0 g/dL (3.9-5) L 08/15/17 21:28 Albumin/Globulin Ratio 1.3 % 08/15/17 21:28 Triglycerides 143 mg/dL (2-149) 08/15/17 21:28 Cholesterol 272 mg/dL (50-199) H 08/15/17 21:28 LDL Cholesterol Direct 167 mg/dL (50-130) H 08/15/17 21:28 HDL Cholesterol 102 mg/dL (40-59) H 08/15/17 21:28 Cholesterol/HDL Ratio 2.66 % 08/15/17 21:28 TSH 2.910 mlU/mL (0.270-4.200) 08/15/17 21:37 Free T4 1.09 ng/dL (0.76-1.46) 08/15/17 21:37 Urine Color Yellow (Yellow) 08/15/17 23:44 Urine Turbidity Clear (Clear) 08/15/17 23:44 Urine pH 6.0 (5.0-7.0) 08/15/17 23:44 Ur Specific [place] 1.011 (1.003-1.030) 08/15/17 23:44 Urine Protein >500 mg/dL (Negative) 08/15/17 23:44 Urine Glucose (UA) >=500 mg/dL (Negative) 08/15/17 23:44 Urine Ketones Neg mg/dL (Negative) 08/15/17 23:44 Urine Blood Neg (Negative) 08/15/17 23:44 Urine Nitrite Neg (Negative) 08/15/17 23:44 Urine Bilirubin Neg (Negative) 08/15/17 23:44 Urine Urobilinogen < 2.0 mg/dL (<2.0) 08/15/17 23:44 Ur Leukocyte Esterase Neg (Negative) 08/15/17 23:44 Urine WBC (Auto) 2.0 /HPF (0.0-6.0) 08/15/17 23:44 Urine RBC (Auto) 1.0 /HPF (0.0-6.0) 08/15/17 23:44 U Epithel Cells (Auto) < 1.0 /HPF (0-13.0) 08/15/17 23:44 Amorphous Crystals 2+ 08/15/17 23:44 Hyaline Casts 3 /LPF 08/15/17 23:44 Urine Mucus Few /HPF 08/15/17 23:44 Urine Creatinine 56.7 mg/dL (0.1-20.0) H 08/21/17 06:37 Protein/Creatinin Ratio 6.98 08/21/17 06:37 Urine Sodium 51 mmol/L 08/21/17 06:37 Urine Total Protein 396 mg/dL (5-11.8) H 08/21/17 06:37 Urine Opiates Screen Presumptive negative 08/15/17 23:44 Urine Methadone Screen Presumptive negative 08/15/17 23:44 Ur Barbiturates Screen Presumptive negative 08/15/17 23:44 Ur Phencyclidine Scrn Presumptive negative 08/15/17 23:44 Ur Amphetamines Screen Presumptive negative 08/15/17 23:44 U Benzodiazepines Scrn Presumptive negative 08/15/17 23:44 Urine Cocaine Screen Presumptive negative 08/15/17 23:44 U Marijuana (THC) Screen Presumptive negative 08/15/17 23:44 Drugs of Abuse Note Disclamer 08/15/17 23:44 Plasma/Serum Alcohol < 0.01 % (0-0.07) 08/15/17 21:37
[2017-08-21] MEDS: NEURONTIN PO SCH ×2 (17:32→22:08)
[2017-08-21] MEDS: LANTUS SUB-Q SCH (22:09)
[2017-08-21] MEDS: SODIUM CHLORIDE FLUSH SYRINGE 10 ML IV SCH (22:11)
--- NOTE | 2017-08-22 04:29 | Ultrasound Report ---
FINAL REPORT EXAM: US RENAL BILAT HISTORY: Acute renal failure. TECHNIQUE: Routine sonographic evaluation was obtained of the kidneys and bladder. FINDINGS: The right kidney measures 10.1 cm x 5.2 cm x 5.4 cm. The cortical thickness is 1.6 cm. The cortical echotexture is slightly increased. There is no evidence of hydronephrosis or shadowing stones. The left kidney measures 8.7 cm x 5.5 cm x 3.7 cm. The cortical thickness is 1.7 cm. The cortical echotexture is increased. There no evidence of stones or hydronephrosis. The bladder appears normal. IMPRESSION: Increased cortical echotexture both kidneys compatible with underlying renal medical disease No evidence of renal stones or hydronephrosis.
[2017-08-22] MEDS: NEURONTIN PO SCH (06:42)
[2017-08-22 07:13] LABS: Calcium 8.1 mg/dL (8.4-10.2)
[2017-08-22] MEDS: APRESOLINE PO SCH (08:30)
[2017-08-22] MEDS: HumuLIN R SUB-Q SCH (08:30)
--- NOTE | 2017-08-22 09:02 | Progress Note ---
Assessment and Plan 1. Acute kidney injury: WILDA superimposed on CKD stage 4 in the setting of CHF. Hemodynamically stable. Monitor renal function. 2. Hyperkalemia: Improved. Monitor. 3. Nephrotic range Proteinuria: Likely diabetic nephropathy. Antibodies are pending. 4. Diastolic CHF. Metolazone for volume overlaod. 5. Respiratory failure: COPD exacerbation. H/o SELENE. BIPAP as needed. 6. Type 2 diabetes mellitus. 7. Hypertension. 8. Anemia. Subjective Date of service: 08/22/17 Interval history: Patient is doing ok. Objective - Vital Signs Vital signs: Vital Signs - 12hr 08/21/17 08/21/17 08/21/17 21:06 21:07 21:15 Temperature Pulse Rate Pulse Rate [ 80 71 Anterior Bilateral Throughout] Pulse Rate [ Right Radial] Respiratory Rate Respiratory 20 20 Rate [Anterior Bilateral Throughout] Blood Pressure Blood Pressure [Right] O2 Sat by Pulse 96 Oximetry 08/21/17 08/21/17 08/21/17 22:00 22:08 23:00 Temperature Pulse Rate 71 65 Pulse Rate [ Anterior Bilateral Throughout] Pulse Rate [ 70 Right Radial] Respiratory 20 23 Rate Respiratory Rate [Anterior Bilateral Throughout] Blood Pressure 146/60 Blood Pressure [Right] O2 Sat by Pulse 97 Oximetry 08/22/17 08/22/17 08/22/17 00:34 05:00 07:59 Temperature 98.3 F 97.3 F L 97.6 F Pulse Rate 71 72 65 Pulse Rate [ Anterior Bilateral Throughout] Pulse Rate [ Right Radial] Respiratory 18 18 20 Rate Respiratory Rate [Anterior Bilateral Throughout] Blood Pressure 174/68 Blood Pressure 142/55 138/68 [Right] O2 Sat by Pulse 99 98 99 Oximetry 08/22/17 08/22/17 08:30 08:36 Temperature 97.6 F Pulse Rate 65 65 Pulse Rate [ Anterior Bilateral Throughout] Pulse Rate [ Right Radial] Respiratory 20 Rate Respiratory Rate [Anterior Bilateral Throughout] Blood Pressure 174/68 Blood Pressure 174/68 [Right] O2 Sat by Pulse 99 Oximetry - General Appearance General appearance: well-developed, well-nourished, appears stated age, obese, other (no distress) EENT: ATNC, PERRL, mucous membranes moist, hearing intact, vision intact Neck: supple Respiratory: Present: Rales, Decreased Breath Sounds (both bases) Cardiology: regular, S1S2, no murmurs Gastrointestinal: normoactive bowel sounds, no tenderness, obese Integumentary: no rash Neurologic: no focal deficit, no asterixis Musculoskeletal: other (1+ edema of both LEs noted) Psychiatric: cooperative - Lab 08/18/17 09:09 08/22/17 05:50 Most recent lab results Calcium 8.1 mg/dL (8.4-10.2) L 08/22/17 05:50 Phosphorus 5.70 mg/dL (2.5-4.5) H 08/22/17 05:50 Urine Creatinine 56.7 mg/dL (0.1-20.0) H 08/21/17 06:37 Urine Sodium 51 mmol/L 08/21/17 06:37 Urine Total Protein 396 mg/dL (5-11.8) H 08/21/17 06:37
[2017-08-22] MEDS: DUONEB *Not for PRN Use IH SCH ×2 (09:37→14:45)
[2017-08-22] MEDS: LOVENOX SUB-Q SCH (10:26)
[2017-08-22] MEDS: TOPROL XL PO SCH (10:27)
[2017-08-22] MEDS: HALFPRIN EC PO SCH (10:27)
[2017-08-22] MEDS: PROzac PO SCH (10:27)
[2017-08-22] MEDS ORDERED: ZAROXOLYN PO SCH (11:00)
[2017-08-22 12:58] VITALS: BP 158/57
--- NOTE | 2017-08-22 13:39 | Discharge Summary ---
Providers - Providers Date of Admission: 08/16/17 02:22 Date of discharge: 08/22/17 Attending physician: OBDULIA JONES 08/17/17 11:26 Physical Therapy Evaluation and Treat [CONS] Routine Comment: Reason For Exam: weakness 08/19/17 13:36 Consult to Physician [CONS] Routine Comment: Consulting Provider: ADORE MEAD Physician Instructions: Reason For Exam: kishan on ckd known to him Primary care physician: CANDIE UGALDE Hospitalization Condition: Stable Disposition: [id number]/[place]-06 HOME UNDER HOME TH Time spent for discharge: 33 min Core Measure Documentation - Palliative Care Palliative Care/ Comfort Measures: Not Applicable - Core Measures Any of the following diagnoses?: none Exam - Constitutional Vitals: Temp Pulse Resp BP Pulse Ox 97.9 F 66 20 158/57 100 08/22/17 11:44 08/22/17 11:44 08/22/17 11:44 08/22/17 11:44 08/22/17 11:44 General appearance: Present: no acute distress, well-nourished, obese - EENT Eyes: Present: PERRL, EOM intact - Neck Neck: Present: supple, normal ROM - Respiratory Respiratory effort: normal Respiratory: bilateral: diminished, negative: rales, rhonchi, wheezing - Cardiovascular Rhythm: regular Heart Sounds: Present: S1 & S2 - Extremities Extremities: no ischemia, No edema - Abdominal General gastrointestinal: Present: soft, non-tender, non-distended, normal bowel sounds - Integumentary Integumentary: Present: clear, warm - Musculoskeletal Musculoskeletal: strength equal bilaterally - Psychiatric Psychiatric: appropriate mood/affect, cooperative - Neurologic Neurologic: CNII-XII intact, moves all extremities Plan Activity: advance as tolerated, fall precautions Diet: diabetic Additional Instructions: Fall precautions. Home oxygen, 2 L nasal cannula as needed. Follow-up primary care physician 3-4 days. The private temp recruiter in 1 week Follow up with: CANDIE UGALDE MD [Primary Care Provider] - 3-5 Days ADORE MEAD MD [Staff Physician] - 7 Days Prescriptions: Albuterol Sulfate 108 mcg INHALATION Q6HR PRN #1 PRN Reason: Dyspnea Aspirin [Aspir-Low] 1 tab PO QDAY #30 tablet. Dorzolamide HCl/Timolol Maleat 1 drop OU QPM #1 DUONEB *Not for PRN Use* 3 ml INHALATION Q6H PRN 30 Days PRN Reason: Dyspnea Ergocalciferol [Vitamin D2] 50,000 unit PO QWEEK #4 capsule Famotidine [Pepcid] 20 mg PO DAILY #30 tablet Ferrous Sulfate [Feosol 325 MG tab] 1 tab PO QDAY #30 tablet FLUoxetine [PROzac] 20 mg PO QDAY #14 capsule Gabapentin [Neurontin] 300 mg PO Q8HR #30 capsule hydrALAZINE [Apresoline TAB] 50 mg PO TID #90 tablet Insulin Glargine [Lantus VIAL] 15 units SUB-Q QHS #30 units Metolazone [Zaroxolyn] 5 mg PO QDAY #30 tablet Metoprolol Xl [Metoprolol SUCCINATE ER TAB] 1 tab PO QDAY #30 tablet oxyCODONE /ACETAMINOPHEN [Percocet 5/325 mg] 1 tab PO Q6H PRN #10 tablet PRN Reason: Pain, Moderate (4-6)
[2017-08-22] MEDS ORDERED: NEURONTIN PO SCH (22:00)
== END 2017-08-22 16:40 | disposition home health service (06) | DRG 682 ==
LOC: ED 19:48 → 4A 08-16 02:22
PROVIDERS: ADMIT Internal Medicine; ATTEND Internal Medicine
PROC: 4A033R1 Measurement of Arterial Saturation, Peripheral, Percutaneous Approach (ICD-10-PCS; principal; 2017-08-16)
PROC: 5A09357 Assistance with Respiratory Ventilation, Less than 24 Consecutive Hours, Continuous Positive Airway Pressure (ICD-10-PCS; 2017-08-16)
PROC: 5A09357 Assistance with Respiratory Ventilation, Less than 24 Consecutive Hours, Continuous Positive Airway Pressure (ICD-10-PCS; 2017-08-21)
DX: N17.9 Acute kidney failure, unspecified (principal); I50.33 Acute on chronic diastolic (congestive) heart failure; J96.21 Acute and chronic respiratory failure with hypoxia; J96.22 Acute and chronic respiratory failure with hypercapnia; J44.1 Chronic obstructive pulmonary disease with (acute) exacerbation; I13.0 Hypertensive heart and chronic kidney disease with heart failure and stage 1 through stage 4 chronic kidney disease, or unspecified chronic kidney disease; N18.4 Chronic kidney disease, stage 4 (severe); E87.5 Hyperkalemia; R80.9 Proteinuria, unspecified; G47.33 Obstructive sleep apnea (adult) (pediatric); I25.10 Atherosclerotic heart disease of native coronary artery without angina pectoris; D64.9 Anemia, unspecified; E11.22 Type 2 diabetes mellitus with diabetic chronic kidney disease; Z79.899 Other long term (current) drug therapy; Z79.4 Long term (current) use of insulin
CPT/HCPCS: 36415; 70450; 71045; 76770; 80048; 80053; 80061; 80307; 80320; 81001; 82140; 82550; 82553; 82570; 82803; 82962; 83880; 84100; 84156; 84300; 84439; 84443; 84484; 85007; 85025; 85610; 85730; 86021; 86038; 86160; 93005; 93010; 94640; 94660; 94760; G0480; G8978-GP; G8979-GP; J1650; J1815; J2405; J2930